=== PATIENT | male | born 1955 | race African-American/Black ===

== ENCOUNTER 2024-02-25 18:33 | Emergency (ER) | payer MEDICARE, MEDICAID, SELFPAY ==
[2024-02-25 18:35] VITALS: BP 160/133; PULSE 95; RESP 16; TEMP 36.8; O2SAT 95; BMI 38.9
--- NOTE | 2024-02-25 18:42 | EX.ED.VIS.EY ---
HPI History of Present Illness Chief Complaint: Eye Problem Detail of Chief Complaint: Swelling and drainage from left eye after blunt trauma Informant: patient Onset/Context/Timing Location: Left Eye Onset: Yesterday Context: Gradual Onset Timing: Continuous Current Severity: Moderate Worsened by: Trauma Relieved by: Nothing Associated Symptoms Associated Symptoms - Eyes: Drainage, Eyelid swelling, Foreign body sensation, Matting, Pain and Redness Visual Changes: left: Blurred vision History of injury: Yes and Direct trauma Visual correction: None Narrative Narrative: Patient is an elderly male who presents because of increased swelling of his left upper eyelid with drainage from the eye. He believes the drainage is due to the fact that he got soup in his eye. He denies headache. He states he is able to see out of the eye once I opened it. Prior similar symptoms: No Recent Illness/Hospitalization: No [facility] Medical History (Updated 02/25/24 @ 19:[address] Aaron Sheridan MD) Acute insomnia Alcohol abuse Alcohol dependence with alcohol-induced persisting dementia Cognitive communication deficit Constipation COPD (chronic obstructive pulmonary disease) Delusional disorders Dementia Disorientation, unspecified Essential hypertension Hallucinations, unspecified Herpesviral vesicular dermatitis Irritable bowel syndrome Muscle weakness (generalized) Overactive bladder Paranoid schizophrenia Peripheral vascular disease Type 2 diabetes mellitus Unspecified abnormalities of gait and mobility Vitamin D deficiency Allergy/AdvReac Type Severity Reaction Status Date / Time lithium Allergy Intermediate PT UNSURE Verified 02/25/24 18:37 OF REACTION ROS ROS ED Constitutional Constitutional ED: Denies chills, fever(s) or subjective Eyes Eyes: Reports change in vision left ENT ENT ED: Denies ear pain, rhinorrhea or sore throat Gastrointestinal Gastrointestinal: Reports nausea and vomiting Musculoskeletal Musculoskeletal: Denies arthralgias or myalgias Neurologic Neurologic: Denies headache(s) EXAM Physical Exam Const Vital Signs: 02/25/24 18:35 Temperature 98.3 F Temperature Source Temporal Pulse Rate 95 Respiratory Rate 16 Blood Pressure 160/133 H Blood Pressure Mean 142 Pulse Ox 95 Oxygen Delivery Method Room Air Positive well nourished, well developed and obese General Appearance ED: well developed and NAD Nutritional Appearance: obese HEENT HEENT Narrative: Patient has obvious swelling of the upper left eyelid. The eye appears proptotic. He complains of pain with movement. He had difficulty looking to the right. There is drainage noted from the eye. trauma Eyes Eyes Narrative: Pupils equal round reactive. Extract muscle intact. There appears to be an obvious corneal abrasion. The sclera is injected. The conjunctive is injected. There is no step-off with palpation infraorbital rim. There is no hyperesthesia of the infraorbital nerve. Patient reports significant pain looking to the right. Unable to determine how far he was able left because he complained of severe pain. Neck no lymphadenopathy, supple and no JVD Resp normal respiratory effort and clear to auscultation bilaterally Cardio regular rate and regular rhythm Neuro oriented x3 and CN's II-XII intact bilaterally Sensorium / Orientation: alert Psych Psych Narrative: Mood and affect are normal Skin no wounds MDM MDM MDM Narrative Medical decision making narrative: With pain with movement and proptosis will obtain CT orbit to assess for retro-orbital hematoma. Nurse was asked to perform visual acuity. Will anesthetize eyes with tetracaine and stained with foreseen and perform slit-lamp exam looking for evidence of corneal laceration,. There is no obvious hyphema noted. Visual acuity 20/70 right eye 20/100 left eye. Patient normally wears glasses. He does not have his glasses with him. Attempt at slit-lamp exam was suboptimal. Patient became angry because I would hold his eyes open. He states that is making his pain worse. He does have a corneal abrasion. Cannot determine the extent. Unable to determine if he has flare or cells however he does not have photophobia to consensual light. Patient states he wants to go back to the nursing facility. Patient does have capacity to refuse care. He is willing to have the laundry tech to perform a CAT scan to determine if there is blood behind his eyes. I was informed by the offshore wind turbine technician to make an the patient we will not allow her to scan him. Prior to his refusal of the slit-lamp exam he was informed of concerns and possible outcomes. He was able to repeat in simple terms that he may lose his vision. He may have increased pain. Will prescribe antibiotic eyedrops. Even though patient may have a mental illness he does have capacity to sign out against medical vice. Will have patient's sign AMA form. Discharge Plan Triage Chief Complaint: Eye Problem ED Provider: Aaron Sheridan Dx/Rx/DC Orders Clinical Impression: Acute conjunctivitis of left eye, Chemosis of left conjunctiva, Periorbital hematoma of left eye, Abrasion of cornea, left Instructions: ED Conjunctivitis, Nonspecific, ED Corneal Abrasion Referrals: Se Capps MD [Med Staff - Active Staff] - 1-2 Days if not improving Activity Restrictions/Additional Instructions: 1. Instill 1 to 2 drops of ciprofloxacin ophthalmic solution every 2-4 hours while awake left eye. I admit informed by Dr. Sheridan that my lack of cooperation and inability to perform a complete examination which includes a slit-lamp examination and CAT scan may result in loss of vision and or eye. This may also result in infection. This may result in more extensive and invasive treatment by not allowing Dr. Sheridan to perform adequate exam and offshore wind turbine technician to perform CAT scan of the orbit. If I develop a severe infection this may result in injury to other organ systems and possibly require life support i.e. intubation, feeding tube, Kohler and other interventions. This is not limited to what is documented. Disposition Disposition: Against Medical Advice
[2024-02-25] MEDS: Tetracaine 0.5% Ophthalmic Bottle 1 DRP LEFT EYE (18:50)
[2024-02-25] MEDS: Fluorescein 1 MG STRIP 1 STRIP LEFT EYE (18:50)
--- NOTE | 2024-02-25 19:26 | EX.ED.VIS.EY ---
HPI History of Present Illness Chief Complaint: Eye Problem [facility] Medical History (Updated 02/25/24 @ 19:[address] Aaron Sheridan MD) Acute insomnia Alcohol abuse Alcohol dependence with alcohol-induced persisting dementia Cognitive communication deficit Constipation COPD (chronic obstructive pulmonary disease) Delusional disorders Dementia Disorientation, unspecified Essential hypertension Hallucinations, unspecified Herpesviral vesicular dermatitis Irritable bowel syndrome Muscle weakness (generalized) Overactive bladder Paranoid schizophrenia Peripheral vascular disease Type 2 diabetes mellitus Unspecified abnormalities of gait and mobility Vitamin D deficiency Allergy/AdvReac Type Severity Reaction Status Date / Time lithium Allergy Intermediate PT UNSURE Verified 02/25/24 18:37 OF REACTION EXAM Physical Exam Const Vital Signs: 02/25/24 18:35 Temperature 98.3 F Temperature Source Temporal Pulse Rate 95 Respiratory Rate 16 Blood Pressure 160/133 H Blood Pressure Mean 142 Pulse Ox 95 Oxygen Delivery Method Room Air Discharge Plan Triage Chief Complaint: Eye Problem ED Provider: Aaron Sheridan Dx/Rx/DC Orders Clinical Impression: Acute conjunctivitis of left eye, Chemosis of left conjunctiva, Periorbital hematoma of left eye, Abrasion of cornea, left Instructions: ED Conjunctivitis, Nonspecific, ED Corneal Abrasion Referrals: Se Capps MD [Med Staff - Active Staff] - 1-2 Days if not improving Activity Restrictions/Additional Instructions: 1. Instill 1 to 2 drops of ciprofloxacin ophthalmic solution every 2-4 hours while awake left eye. I admit informed by Dr. Sheridan that my lack of cooperation and inability to perform a complete examination which includes a slit-lamp examination and CAT scan may result in loss of vision and or eye. This may also result in infection. This may result in more extensive and invasive treatment by not allowing Dr. Sheridan to perform adequate exam and windshield technician to perform CAT scan of the orbit. If I develop a severe infection this may result in injury to other organ systems and possibly require life support i.e. intubation, feeding tube, Kohler and other interventions. This is not limited to what is documented. Disposition Disposition: Against Medical Advice
--- NOTE | 2024-02-25 19:27 | EX.ED.VIS.EY ---
HPI History of Present Illness Chief Complaint: Eye Problem [facility] Medical History (Updated 02/25/24 @ 19:[address] Aaron Sheridan MD) Acute insomnia Alcohol abuse Alcohol dependence with alcohol-induced persisting dementia Cognitive communication deficit Constipation COPD (chronic obstructive pulmonary disease) Delusional disorders Dementia Disorientation, unspecified Essential hypertension Hallucinations, unspecified Herpesviral vesicular dermatitis Irritable bowel syndrome Muscle weakness (generalized) Overactive bladder Paranoid schizophrenia Peripheral vascular disease Type 2 diabetes mellitus Unspecified abnormalities of gait and mobility Vitamin D deficiency Allergy/AdvReac Type Severity Reaction Status Date / Time lithium Allergy Intermediate PT UNSURE Verified 02/25/24 18:37 OF REACTION EXAM Physical Exam Const Vital Signs: 02/25/24 18:35 Temperature 98.3 F Temperature Source Temporal Pulse Rate 95 Respiratory Rate 16 Blood Pressure 160/133 H Blood Pressure Mean 142 Pulse Ox 95 Oxygen Delivery Method Room Air MDM MDM MDM Narrative Medical decision making narrative: When I attempt to add an addendum to the original documentation a new document opens. This was tried 3 separate times. I was informed that there is a POA for the patient. The nurse contacted the facility that patient came from. They gave us 3 numbers and attempt to contact the POA who I was told as an family law attorney. All 3 numbers were called. The nurse said they went to voicemail. Unable to contact the POA. As previously stated patient may have a mental illness but he does have capacity and understands the consequences by not cooperating. He states if we do not get a ride home for him he will walk back to the facility. Discharge Plan Triage Chief Complaint: Eye Problem ED Provider: Aaron Sheridan Dx/Rx/DC Orders Clinical Impression: Acute conjunctivitis of left eye, Chemosis of left conjunctiva, Periorbital hematoma of left eye, Abrasion of cornea, left Instructions: ED Conjunctivitis, Nonspecific, ED Corneal Abrasion Referrals: Se Capps MD [Med Staff - Active Staff] - 1-2 Days if not improving Activity Restrictions/Additional Instructions: 1. Instill 1 to 2 drops of ciprofloxacin ophthalmic solution every 2-4 hours while awake left eye. I admit informed by Dr. Sheridan that my lack of cooperation and inability to perform a complete examination which includes a slit-lamp examination and CAT scan may result in loss of vision and or eye. This may also result in infection. This may result in more extensive and invasive treatment by not allowing Dr. Sheridan to perform adequate exam and manufacturing technology analyst to perform CAT scan of the orbit. If I develop a severe infection this may result in injury to other organ systems and possibly require life support i.e. intubation, feeding tube, Kohler and other interventions. This is not limited to what is documented. Disposition Disposition: Against Medical Advice
--- NOTE | 2024-02-25 19:27 | ED.RN ---
This RN attempted to call 3 phone numbers for the legal guardian and did not get an answer from them. This RN called [facility] and they also could not get a hold of the legal guardian. The patient is saying I do not want to be touched, take me to correction instead of being here and is rambling on. The patient is being discharged home without a CT due to him becoming agitated and refusing numerous times. This RN called report back to [facility] and they are aware of the plan of care.
--- NOTE | 2024-02-25 19:36 | ED.RN ---
Pt is refusing eye drops and stating it hurts to touch, dont touch me! Id rather go to skilled nursing than be here.
--- NOTE | 2024-02-25 19:37 | ED.RN ---
MD aware of problems with patient and he has explained the risks of refusing treatment.
== END 2024-02-25 21:01 | disposition left against medical advice (07) ==
PROVIDERS: Emergency Provider Emergency Medicine; PCP Family Medicine; Visit Provider Emergency Medicine
DX: S05.12XA Contusion of eyeball and orbital tissues, left eye, initial encounter (principal); J44.9 Chronic obstructive pulmonary disease, unspecified; E11.9 Type 2 diabetes mellitus without complications; H10.32 Unspecified acute conjunctivitis, left eye; H11.422 Conjunctival edema, left eye; S05.02XA Injury of conjunctiva and corneal abrasion without foreign body, left eye, initial encounter; I10 Essential (primary) hypertension; W44.F3XA Food entering into or through a natural orifice, initial encounter; Y92.129 Unspecified place in nursing home as the place of occurrence of the external cause
CPT/HCPCS: 99284

== ENCOUNTER 2025-03-03 18:47 | Inpatient (IN) | payer MEDICARE, MEDICAID, SELFPAY ==
[2025-03-03] VITALS (10 sets, daily range): BP systolic 116–145; BP diastolic 63–94; PULSE 81–96; RESP 18–22; TEMP 36.4–37.1; O2SAT 86–100; BMI 49.6; BMI 43.7
--- NOTE | 2025-03-03 19:13 | EKG12_ITS ---
Test Reason : SOB Blood Pressure : */* mmHG Vent. Rate : 90 BPM Atrial Rate : 90 BPM P-R Int : 178 ms QRS Dur : 126 ms QT Int : 352 ms P-R-T Axes : 52 -43 89 degrees QTcB Int : 430 ms Normal sinus rhythm with sinus arrhythmia Left axis deviation Non-specific intra-ventricular conduction block Abnormal ECG Confirmed by Gil Munoz ([id number]), television news video editor SAHIL ROSEN ([id number]) on 03/08/2025 1:06:16 PM Referred By: SISSY Confirmed By: Gil Munoz
--- NOTE | 2025-03-03 19:16 | ED.VIS.DYS ---
HPI History of Present Illness Chief Complaint: Shortness of Breath Informant: patient, EMS and SNF Narrative Narrative: 69-year-old male presenting to the emergency room with reported shortness of breath. Patient is from nursing home facility. He was deemed incompetent by Environmental Sustainability Manager. He has a longstanding psychiatric history. He was noted to be increased shortness of breath with hypoxia this afternoon. He had been started on Lasix 20 mg today. They also gave him a breathing treatment. He does not typically wear oxygen. He was reported to not have known cardiac history. I do not see that he is on a anticoagulant. He does receive valproic acid. EMS and nursing notes that he is in the mid 80s on room air. [facility] Medical History Dementia Cognitive communication deficit Disorientation, unspecified Delusional disorders Irritable bowel syndrome Peripheral vascular disease Hallucinations, unspecified Alcohol dependence with alcohol-induced persisting dementia Muscle weakness (generalized) Essential hypertension Constipation Herpesviral vesicular dermatitis Paranoid schizophrenia Unspecified abnormalities of gait and mobility Type 2 diabetes mellitus Alcohol abuse Overactive bladder Vitamin D deficiency Dementia Acute insomnia COPD (chronic obstructive pulmonary disease) Home Medications ?Medication ?Instructions ?Recorded ?Last Taken ?Type aspirin 81 mg capsule 81 mg PO DAILY 03/03/25 Unknown History cholecalciferol (vitamin D3) 125 125 mcg PO MO 03/03/25 Unknown History mcg (5,000 unit) capsule cholecalciferol (vitamin D3) 25 25 mcg PO DAILY 03/03/25 Unknown History mcg (1,000 unit) chewable tablet divalproex 125 mg capsule,delayed 500 mg PO DAILY 03/03/25 Unknown History release sprinkle divalproex 125 mg capsule,delayed 750 mg PO QHS 03/03/25 Unknown History release sprinkle (Depakote Sprinkles) ipratropium 0.5 mg-albuterol 3 mg 3 ml inhalation Q8H 03/03/25 Unknown History (2.5 mg base)/3 mL nebulization soln lisinopril 20 mg tablet 20 mg PO DAILY 03/03/25 Unknown History lorazepam 1 mg tablet 1 mg PO Q6H PRN agitation 03/03/25 Unknown History metformin 500 mg tablet 500 mg PO BID 03/03/25 Unknown History multivitamin (Daily Multi-Vitamin 1 tab PO DAILY 03/03/25 Unknown History tablet) olanzapine 10 mg tablet (Zyprexa) 10 mg PO DAILY 03/03/25 Unknown History paliperidone palmitate 234 mg/1.5 234 mg IM Q28D 03/03/25 Unknown History mL intramuscular syringe (Erzofri) prednisone 20 mg tablet 40 mg PO DAILY 03/03/25 Unknown History tamsulosin 0.4 mg capsule 0.4 mg PO Q24H 03/03/25 Unknown History Allergy/AdvReac Type Severity Reaction Status Date / Time lithium Allergy Intermediate PT UNSURE Verified 03/03/25 18:48 OF REACTION Social History household members: none housing: custodial Smoking Status: Current every day smoker tobacco type: cigarettes alcohol intake: former substance use type: does not use ROS ROS ED Review of Systems ROS Unobtainable: due to mental status EXAM Physical Exam Narrative Exam Narrative: Patient is awake he is alert responds to his name. When he speaks its mostly gibberish and incomprehensible sounds. Const Vital Signs: 03/03/25 18:48 03/03/25 18:53 03/03/25 18:53 Temperature 98.7 F 97.8 F Temperature Source Oral Oral Pulse Rate 92 86 Respiratory Rate 18 18 Respiratory Effort Short of Breath Respiratory Depth Normal Respiratory Pattern Normal Blood Pressure 140/77 H 140/77 H Blood Pressure Mean 98 98 Pulse Ox 86 97 Oxygen Delivery Method Room Air Nasal Cannula Nasal Cannula Oxygen Flow Rate (L/min) 2 2 03/03/25 19:47 03/03/25 19:53 03/03/25 20:00 Temperature 97.6 F L 97.7 F L Temperature Source Oral Oral Pulse Rate 88 89 88 Respiratory Rate 21 H 21 H 22 H Respiratory Effort Respiratory Depth Respiratory Pattern Blood Pressure 130/90 H 130/87 H 145/83 H Blood Pressure Mean 103 101 103 Pulse Ox 96 94 96 Oxygen Delivery Method Nasal Cannula Nasal Cannula Nasal Cannula Oxygen Flow Rate (L/min) 1 1 1 03/03/25 21:00 03/03/25 22:00 03/03/25 22:00 Temperature 98 F 98.1 F Temperature Source Oral Temporal Pulse Rate 95 90 90 Respiratory Rate 18 19 H 19 H Respiratory Effort Respiratory Depth Respiratory Pattern Blood Pressure 137/94 H 133/71 H 133/71 H Blood Pressure Mean 108 91 91 Pulse Ox 96 92 92 Oxygen Delivery Method Nasal Cannula Nasal Cannula Nasal Cannula Oxygen Flow Rate (L/min) 2 2 2 03/03/25 22:11 Temperature Temperature Source Pulse Rate 96 Respiratory Rate 20 H Respiratory Effort Respiratory Depth Respiratory Pattern Normal Blood Pressure Blood Pressure Mean Pulse Ox Oxygen Delivery Method Oxygen Flow Rate (L/min) Positive well nourished, well developed and obese General Appearance ED: well developed and NAD Nutritional Appearance: obese HEENT Reports normocephalic, head/scalp atraumatic and moist mucous membranes Eyes PERRL and EOMs intact bilaterally Neck no lymphadenopathy, supple and no JVD Resp Resp Narrative: Mild tachypnea at rest Auscultation: rhonchi throughout Cardio regular rate, regular rhythm and no murmurs GI normal to inspection, nondistended, normoactive bowel sounds and non-tender Palpation: soft Back/Spine no CVA tenderness and normal ROM Extremity General Extremety ED: Yes edema General Extremity: edema bilateral lower extremity Details: moderate Neuro CN's II-XII intact bilaterally Sensorium / Orientation: alert Motor Exam: strength 5/5 throughout Psych Mood & Affect: Negative for depressed or tearful Skin no rashes or lesions noted and no wounds MDM MDM MDM Narrative Medical decision making narrative: Differential diagnosis includes but not limited to pulmonary embolism pneumonia COPD exacerbation congestive heart failure pleural effusion bronchospasm acute coronary syndrome My independent interpretation of the chest x-ray is possible pulmonary edema no distinct pleural effusion. EKG is nonischemic is sinus. White count 7.3 hemoglobin 10.6 platelet count 182 lactic acid is 1.6 glucose 129 creatinine 0.62 troponin 9 BNP is 882 urinalysis with no overt infection. Valproic acid level was obtained and is 75. A CTA of the chest was obtained which was read by radiology and reviewed by myself. It is read as no pulmonary embolism noted. There is bibasilar atelectasis and a trace pericardial effusion. I do not see infiltrate. Patient's legs are diffusely edematous and tight. He received Lasix. He has rather rhonchorous lung sounds and he received breathing treatments and Solu-Medrol. I do not see overt pulmonary edema on CTA and his BNP does not support that. He still required supplemental oxygen and believe would be best served inpatient for diuresis and further management of his COPD. I will speak with the hospitalist History & Record Review Discussion w/independent historian: EMS personnel and Other (SNF) Additional record(s) reviewed:: Prior outpatient record, Prior ED visit and Prior labs Lab Data Attestation: I reviewed the patient's lab results. Labs: Laboratory Results - last 24 hr 03/03/25 03/03/25 19:17 20:34 WBC 7.3 RBC 4.06 L Hgb 10.6 L Hct 33.6 L MCV 82.8 MCH 26.1 L MCHC 31.5 L RDW Std Deviation 47.0 H RDW Coeff of Jann 15.4 H Plt Count 182 MPV 8.2 Immature Gran % (Auto) 0.700 Neut % (Auto) 82.4 H Lymph % (Auto) 10.6 L [place] % (Auto) 6.2 Eos % (Auto) 0.0 Baso % (Auto) 0.1 Absolute Neuts (auto) 6.0 Absolute Lymphs (auto) 0.77 L Nucleated RBC % 0 PT 13.8 INR 1.0 APTT 33.6 Sodium 123 L Potassium 5.1 Chloride 85 L Carbon Dioxide 30.2 Anion Gap 8 BUN 5 Creatinine 0.62 L Estim Creat Clear Calc 125.30 Est GFR (MDRD) Non-Af 104 BUN/Creatinine Ratio 7.7 L Glucose 129 H Lactic Acid 1.6 Calcium 8.8 Total Bilirubin 0.26 Direct Bilirubin 0.13 AST 14 ALT 5 Alkaline Phosphatase 70 Troponin T High Sens 9 NT pro BNP II 882 Total Protein 7.9 Albumin 3.6 Globulin 4.3 H Urine Color Straw Urine Clarity Clear Urine pH 7.0 Ur Specific [place] 1.005 Urine Protein Negative Urine Glucose (UA) Normal Urine Ketones Negative Urine Occult Blood 10 H Urine Nitrite Negative Urine Bilirubin Negative Urine Urobilinogen Normal Ur Leukocyte Esterase Negative Urine RBC 0 SEEN Urine WBC 0 SEEN Ur Squamous Epith Cells 0 SEEN Urine Bacteria RARE Urine Mucus 0 SEEN Valproic Acid 75 Radiography Diagnostic Testing: Clinical Impression(s) from Imaging Studies Chest X-Ray 03/03/25 19:27 IMPRESSION: Findings compatible with interstitial edema. Reading Location: [facility] Chest CTA 03/03/25 20:45 IMPRESSION: *No evidence of pulmonary edema or acute findings in the thorax. *Bibasilar atelectasis. *Trace pericardial effusion. Reading [facility] EKG Initial EKG: Attestation: I personally reviewed and interpreted this EKG as follows: Comments: Normal sinus rhythm with ventricular rate of 90 bpm. Discharge Plan Dx/Rx/DC Orders Clinical Impression: Asthma exacerbation in COPD, Volume overload, Acute hypoxemic respiratory failure Disposition Disposition: Acute Care Hospital [facility] Discharge Date/Time: 03/03/25 22:37
--- NOTE | 2025-03-03 19:27 | RAD_ITS ---
PROCEDURE: CHEST 1 VIEW (PORTABLE) 03/03/2025 REASON FOR EXAM: DYSPNEA TECHNIQUE: Frontal view of the chest. COMPARISON: None FINDINGS: Hardware: None Heart: Heart size is moderately enlarged. Lungs: Diffuse bilateral interstitial thickening. Small bilateral pleural effusions and bibasilar atelectasis. No pneumothorax. No focal consolidation. Bones: Degenerative changes are identified within the thoracic spine. Other: RAD/Chest 1 View (Portable) IMPRESSION: Findings compatible with interstitial edema. Reading Location: [facility]
[2025-03-03 19:28] LABS: Absolute Lymphocyte Count 0.77 X10^3/uL (0.83-4.51); Basophil# 0.01 X10^3/uL; Basophil% 0.1 % (0-1); Hematocrit 33.6 % (40-54); Hemoglobin 10.6 g/dL (13.0-16.5); Lymphocyte # 0.77 X10^3/ul (0.83-4.51); Lymphocyte % 10.6 % (19-41); Mean Corp Hgb Conc 31.5 g/dL (32-36); Mean Corpuscular Hgb 26.1 pg (27.0-32.0); Mean Corpuscular Volume 82.8 fL (80-94); Mean Platelet Vol. 8.2 fl (6.2-12.0); Monocyte# 0.45 X10^3/uL; Monocyte% 6.2 % (0-10); NRBC Flagged by Analyzer 0 % (0-5); Neutrophil # 5.98 X10^3/uL (2.7-7.7); Neutrophil % 82.4 % (47-70); Platelet Count 182 K/mm3 (150-450); RBC Distribution Width CV 15.4 % (11.6-14.6); Red Blood Count 4.06 M/mm3 (4.6-6.2); White Blood Count 7.3 K/mm3 (4.4-11.0)
[2025-03-03 19:57] LABS: Lactic Acid 1.6 mmol/L (0.0-2.0)
[2025-03-03 20:00] LABS: AST(SGOT) 14 U/L (<=37); Alanine Aminotransfer ALT/SGPT 5 U/L (<=46); Albumin, Serum 3.6 g/dL (3.4-4.8); Alkaline Phosphatase 70 U/L (40-129); Anion Gap 8 (5-15); BUN 5 mg/dL (4-19); BUN/Creat Ratio 7.7 RATIO (10-20); Bilirubin, Direct 0.13 mg/dL (0.00-0.30); Calcium,Total 8.8 mg/dL (7.6-11.0); Carbon Dioxide 30.2 mmol/L (21.0-32.0); Chloride 85 mmol/L (98-108); Creatinine, Serum 0.62 mg/dL (0.70-1.20); EST Glomerular Filtration Rate 104 (>60); Globulin 4.3 g/dL (2.2-4.2); Glucose 129 mg/dL (70-99); Potassium 5.1 mmol/L (3.3-5.1); Pro- Brain NATRIURETIC PEPTIDE 882 pg/mL (<=900); Protein, Total 7.9 g/dL (5.9-8.4); Sodium Level 123 mmol/L (133-145); Total Bilirubin 0.26 mg/dL (0.00-1.30); Troponin T High Sensitivity 9 ng/L (<=22)
[2025-03-03 20:17] LABS: Valproic Acid (Depakene) Level 75 ug/mL (50-100)
[2025-03-03 20:25] LABS: Partial Thromboplast Time 33.6 Seconds (24.1-36.2); Prothrombin Time (Protime)PT. 13.8 SECONDS (11.7-14.9)
[2025-03-03 20:39] LABS: Mucous, Urine 0 SEEN /hpf (<or=2+); Red Blood Cells-Urine 0 SEEN /hpf (0-5); Squamous Epithelial Cells - UA 0 SEEN /hpf (0-5); White Blood Cells 0 SEEN /hpf (0-5)
[2025-03-03 20:40] LABS: Color, Urine Straw (Yellow); Glucose, Dipstick Normal (Normal); Ketone-Dipstick Negative (Negative); Leukocyte Esterase-Dipstick Negative /ul (Negative); Nitrite-Dipstick Negative (Negative); Occult Blood-Urine 10 /ul (Negative); Protein-Dipstick Negative (Negative); Specific Gravity, Urine 1.005 (1.002-1.030); Urine Bilirubin Dipstick Negative (Negative); Urine Clarity Clear (Clear); Urine Urobilinogen Normal (Normal)
--- NOTE | 2025-03-03 20:45 | CT_ITS ---
PROCEDURE: CTA CHEST W/WO CONTRAST 03/03/2025 REASON FOR EXAM: PULMONARY EMBOLISM TECHNIQUE: CTA axial imaging of the chest with intravenous contrast. Multiplanar and multisequence images were obtained. PATIENT PREPARATION: Per protocol CONTRAST: Omnipaque 350 VOLUME: 100 mL Not Provided Gauge IV One or more dose reduction techniques were used (e.g., Automated exposure control, adjustment of the mA and/or kV according to patient size, use of iterative reconstruction technique). COMPARISON: None FINDINGS: Hardware: None Lymph nodes: No suspicious adenopathy. Heart: No cardiomegaly. Trace pericardial effusion. Moderate coronary artery calcifications. Thoracic Aorta: No thoracic aortic aneurysm or dissection. Minimal atherosclerotic calcification. Pulmonary Vessels: No large central pulmonary emboli are identified. Contrast timing is suboptimal for evaluation of more distal branches. Most Proximal Level of Embolus (if embolus present): Lungs and Airways: Central airways are patent without endobronchial lesions. Patchy opacities in the lung base, likely secondary to atelectasis. Otherwise, no focal consolidation. No pneumothorax. No pleural effusion. No suspicious pulmonary nodules. Upper Abdomen: Visualized portions of the upper abdominal viscera are unremarkable. Bones: Bone windows are unremarkable. CT/CTA Chest W/WO Contrast IMPRESSION: *No evidence of pulmonary edema or acute findings in the thorax. *Bibasilar atelectasis. *Trace pericardial effusion. Reading Location: [facility]
[2025-03-03 20:47] LABS: Bacteria RARE /hpf (None Seen)
[2025-03-03] MEDS: MethylPREDNISolone 125 MG/2 ML Vial IV (22:11)
[2025-03-03] MEDS: Ipratropium/Albuterol Sulfate 3 ML AMPUL.NEB INHALATION (22:11)
[2025-03-03] MEDS: Furosemide 100 MG/10 ML Vial 60 MG IV (22:11)
--- NOTE | 2025-03-03 22:14 | PCM.HP.STD ---
HPI - General General Date of Admission: 03/03/25 Date of Service: 03/03/25 Chief Complaint: Dyspnea, hypoxia. HPI Narrative The patient is a 69 y/o M w/ PMHx: Hx ETOH abuse, Suspected chronic anemia, BPH with obstructive pathology, Morbid obesity, Dementia alcohol dependence persistent associated with unclear behavioral disturbance history with cognitive communication deficits, paranoid schizophrenia/chronic insomnia, Tobacco use, COPD on chronic steroid therapy, Tobacco use, HTN, HLD, Diabetes mellitus type II who presents to the [facility] ED on 03/03/2025 from [facility] where he was placed secondary to an incompetent ruling per [employer] with a longstanding psychiatric history with increased dyspnea and hypoxia through the afternoon recently initiated on Lasix 20 mg on day of presentation in addition to use breathing treatments but given not improving prompted ED evaluation. Workup in the ED included T98.7, heart rate 92, BP 140/77, respiratory rate 18, initially 86% on room air with improvement to 96% on 2 L with most recent repeat vitals T98, heart rate 95, BP 137/94, respiratory rate 18, CBC with WBC 7.3, he 1 10.6, MCV 82.8, platelet 182 with lymphopenia, unremarkable coags, CMP with sodium 123, chloride 85, BUN/creatinine 5/0.62, GFR 104, glucose 129, lactic acid 1.6, troponin 9, NT proBNP 882, hepatic profile not marked appearing, urinalysis unremarkable with no evidence of dehydration, chest x-ray with diffuse bilateral interstitial thickening with small bilateral pleural effusions and bilateral basilar atelectasis compatible with potential interstitial edema, CTPA with no acute evidence of PE or marked pulmponary edema, noted bibasilar ateletasis, trace pericardial effusion, EKG with SR without acute evidence of ischemia. In the ED patient ministered albuterol therapy x 2, DuoNeb therapy x 1, Solu-Medrol 125 mg IV x 1, Lasix 60 mg IV x 1. [facility] Medical History Dementia Cognitive communication deficit Disorientation, unspecified Delusional disorders Irritable bowel syndrome Peripheral vascular disease Hallucinations, unspecified Alcohol dependence with alcohol-induced persisting dementia Muscle weakness (generalized) Essential hypertension Constipation Herpesviral vesicular dermatitis Paranoid schizophrenia Unspecified abnormalities of gait and mobility Type 2 diabetes mellitus Alcohol abuse Overactive bladder Vitamin D deficiency Dementia Acute insomnia COPD (chronic obstructive pulmonary disease) Home Medications ?Medication ?Instructions ?Recorded ?Last Taken ?Type aspirin 81 mg capsule 81 mg PO DAILY 03/03/25 Unknown History cholecalciferol (vitamin D3) 125 125 mcg PO MO 03/03/25 Unknown History mcg (5,000 unit) capsule cholecalciferol (vitamin D3) 25 25 mcg PO DAILY 03/03/25 Unknown History mcg (1,000 unit) chewable tablet divalproex 125 mg capsule,delayed 500 mg PO DAILY 03/03/25 Unknown History release sprinkle divalproex 125 mg capsule,delayed 750 mg PO QHS 03/03/25 Unknown History release sprinkle (Depakote Sprinkles) ipratropium 0.5 mg-albuterol 3 mg 3 ml inhalation Q8H 03/03/25 Unknown History (2.5 mg base)/3 mL nebulization soln lisinopril 20 mg tablet 20 mg PO DAILY 03/03/25 Unknown History lorazepam 1 mg tablet 1 mg PO Q6H PRN agitation 03/03/25 Unknown History metformin 500 mg tablet 500 mg PO BID 03/03/25 Unknown History multivitamin (Daily Multi-Vitamin 1 tab PO DAILY 03/03/25 Unknown History tablet) olanzapine 10 mg tablet (Zyprexa) 10 mg PO DAILY 03/03/25 Unknown History paliperidone palmitate 234 mg/1.5 234 mg IM Q28D 03/03/25 Unknown History mL intramuscular syringe (Erzofri) prednisone 20 mg tablet 40 mg PO DAILY 03/03/25 Unknown History tamsulosin 0.4 mg capsule 0.4 mg PO Q24H 03/03/25 Unknown History Allergy/AdvReac Type Severity Reaction Status Date / Time lithium Allergy Intermediate PT UNSURE Verified 03/03/25 18:48 OF REACTION unable to obtain unable to obtain Social History household members: none housing: alf Smoking Status: Current every day smoker tobacco type: cigarettes alcohol intake: former substance use type: does not use ROS Review of Systems ROS Unobtainable: due to mental condition Vital Signs Vital Signs Vital Signs: 03/03/25 18:48 03/03/25 18:53 03/03/25 18:53 Temperature 98.7 F 97.8 F Temperature Source Oral Oral Pulse Rate 92 86 Respiratory Rate 18 18 Respiratory Effort Short of Breath Respiratory Depth Normal Respiratory Pattern Normal Blood Pressure 140/77 H 140/77 H Blood Pressure Mean 98 98 Pulse Ox 86 97 Oxygen Delivery Method Room Air Nasal Cannula Nasal Cannula Oxygen Flow Rate (L/min) 2 2 03/03/25 19:47 03/03/25 19:53 03/03/25 20:00 Temperature 97.6 F L 97.7 F L Temperature Source Oral Oral Pulse Rate 88 89 88 Respiratory Rate 21 H 21 H 22 H Respiratory Effort Respiratory Depth Respiratory Pattern Blood Pressure 130/90 H 130/87 H 145/83 H Blood Pressure Mean 103 101 103 Pulse Ox 96 94 96 Oxygen Delivery Method Nasal Cannula Nasal Cannula Nasal Cannula Oxygen Flow Rate (L/min) 1 1 1 03/03/25 21:00 Temperature 98 F Temperature Source Oral Pulse Rate 95 Respiratory Rate 18 Respiratory Effort Respiratory Depth Respiratory Pattern Blood Pressure 137/94 H Blood Pressure Mean 108 Pulse Ox 96 Oxygen Delivery Method Nasal Cannula Oxygen Flow Rate (L/min) 2 Weight Weight: 326 lb 4.546 oz Body Mass Index (BMI) 49.6 Physical Exam Narrative Physical Examination: General: Patient will awaken to stimuli and will attempt discussions but significant chronic communicative debility with underlying severe psychiatric disorder/schizophrenia, no overt respiratory distress evident. Skin: Normal color, normal turgor, no icterus, no cyanosis except various abrasions, cysts, occasional stage ecchymoses as well as significant bilateral lower extremity venous stasis skin changes. HEENT: AT/NC, EOM appear intact, PERRLA, MMM, no carotid bruits, difficult to discern JVD given thickened neck. Lungs: Notably diminished, greater bases, occasional end expiratory wheeze, distant rales, no obvious evidence of distress, mildly increased respiratory rate, no marked rhonchi. Heart: Regular rate and rhythm; no gallop, rub audible. Abdomen: Soft, morbidly obese, no obvious grimacing with palpation, distant BS, difficult to discern distention and HSM given habitus. Extremities: No cyanosis, no clubbing, pedal to proximal knee significant 3+ pitting edema. Neurological: Patient awakens to stimuli, likely alert at his baseline but difficult given significant underlying communicative debility and underlying psychiatric disorder on sedated regimen, oriented as noted, cognitive function suspect likely near baseline intact; pupils equally reactive to light and accommodation, cranial nerves difficult to assess given communicative disabilities, spontaneously moving extremities, difficult to assess focal deficits, strength severely global decreased Psychiatric: Affect appears flat, sedate, no acute evidence of depressive or anxiety feelings but does have significant psychiatric history as noted. Results Lab / Micro Data 03/03/25 19:17 03/03/25 19:17 Labs: Laboratory Results - last 24 hr 03/03/25 19:17: WBC 7.3, RBC 4.06 L, Hgb 10.6 L, Hct 33.6 L, MCV 82.8, MCH 26.1 L, MCHC 31.5 L, RDW Std Deviation 47.0 H, RDW Coeff of Jann 15.4 H, Plt Count 182, MPV 8.2, Immature Gran % (Auto) 0.700, Neut % (Auto) 82.4 H, Lymph % (Auto) 10.6 L, [place] % (Auto) 6.2, Eos % (Auto) 0.0, Baso % (Auto) 0.1, Absolute Neuts (auto) 6.0, Absolute Lymphs (auto) 0.77 L, Nucleated RBC % 0, PT 13.8, INR 1.0, APTT 33.6, Sodium 123 L, Potassium 5.1, Chloride 85 L, Carbon Dioxide 30.2, Anion Gap 8, BUN 5, Creatinine 0.62 L, Estim Creat Clear Calc 125.30, Est GFR (MDRD) Non-Af 104, BUN/Creatinine Ratio 7.7 L, Glucose 129 H, Lactic Acid 1.6, Calcium 8.8, Total Bilirubin 0.26, Direct Bilirubin 0.13, AST 14, ALT 5, Alkaline Phosphatase 70, Troponin T High Sens 9, NT pro BNP II 882, Total Protein 7.9, Albumin 3.6, Globulin 4.3 H, Valproic Acid 75 03/03/25 20:34: Urine Color Straw, Urine Clarity Clear, Urine pH 7.0, Ur Specific [place] 1.005, Urine Protein Negative, Urine Glucose (UA) Normal, Urine Ketones Negative, Urine Occult Blood 10 H, Urine Nitrite Negative, Urine Bilirubin Negative, Urine Urobilinogen Normal, Ur Leukocyte Esterase Negative, Urine RBC 0 SEEN, Urine WBC 0 SEEN, Ur Squamous Epith Cells 0 SEEN, Urine Bacteria RARE, Urine Mucus 0 SEEN Imaging Radiology Impression Chest X-Ray 03/03/25 19:27 IMPRESSION: Findings compatible with interstitial edema. Reading [facility] Chest CTA 03/03/25 20:45 IMPRESSION: *No evidence of pulmonary edema or acute findings in the thorax. *Bibasilar atelectasis. *Trace pericardial effusion. Reading Location: [facility] Assessment & Plan Assessment/Plan (1) Asthma exacerbation in COPD: (2) Hypoxia: PLAN: Plan The patient is a 69 y/o M w/ PMHx: Hx ETOH abuse, Suspected chronic anemia, BPH with obstructive pathology, Morbid obesity, Dementia alcohol dependence persistent associated with unclear behavioral disturbance history with cognitive communication deficits, paranoid schizophrenia/chronic insomnia, Tobacco use, COPD on chronic steroid therapy, Tobacco use, HTN, HLD, Diabetes mellitus type II who presents to the [facility] ED on 03/03/2025 from [facility] facility where he was placed secondary to an incompetent ruling per [employer] with a longstanding psychiatric history with increased dyspnea and hypoxia through the afternoon recently initiated on Lasix 20 mg on day of presentation in addition to use breathing treatments but given not improving prompted ED evaluation. #1. Acute Hypoxia (no respiratory distress, thus presentation more consistent with hypoxia, ruled out respiratory failure), multifactorial, secondary to Suspected Acutely Decompensated HF unclear subtype (despite CTPA findings) in addition to suspected Acute on Chronic COPD Exacerbation: CXR obtained in the ED w/ concern for interstitial edema,CTPA with no acute evidence of PE or marked pulmponary edema, noted bibasilar ateletasis, trace pericardial effusion. Patient administered IV lasix in the ED, will admit to PCU, maintain on cardiac telemetry, obtain cardiac enzyme series, obtain serial EKGs, continue IV lasix diuresis, monitor I/Os, maintain on intake restriction, continue medical therapy, obtain TSH and magnesium level. Echocardiogram requested. Will maintain on oxygen with wean as tolerated to room air, continue ATC duonebs, PRN albuterol, IV methylprednisolone, HOB, IS parameters, will obtain sputum Cx, respiratory viral panel, procalcitonin, will hold on immediately abx therapy but low threshold to add if appropriate. PT/OT/case management consult for discharge planning. #2. Suspected Acute on Possible Chronic Hyponatremia, hypochloremia, suspect hypervolemic presentation given #1: Will continue treatment as noted above, continue IV diuresis, fluid restriction, magnesium, UOsm and TSH requested, will also obtain FeNa, continue to trend CMP. #3. Suspected Chronic normocytic anemia: Admission hemoglobin 10.6, MCV 82.8, unclear previous baseline, early in the day hemoglobin assessment 10.6, will continue to trend, will obtain iron panel, ferritin, vitamin B12 and folic acid levels. #4. Paranoid schizophrenia/chronic insomnia: Will continue patient home Depakote, lorazepam as needed as well as Zyprexa regimen, noted to also be on paliperidone injection. #5. Dementia, alcohol dependence persistent associated with unclear behavioral disturbance history with cognitive communication deficits: Unfortunately uncertain if part of this is secondary to his schizophrenia or just underlying dementia, complicates presentation, maintain on fall precautions, continue PT/OT/case management consultation for discharge planning, continue psychiatric regimen as noted. #6. Diabetes mellitus type II: Hold oral home regimen, hemoglobin A1c requested, ADA diet, accu checks w/ ISS. #7. Hypertension: Continue home regimen including lisinopril with hold parameters as needed, PRN hydralazine. #8. Hyperlipidemia: Per current list does not appear to be on regimen, defer to outpatient. #9. Morbid Obesity: Weight loss and lifestyle changes encouraged. #10. Former alcohol abuse: Encouraged continued alcohol cessation, currently residing in [facility] facility. #11. Tobacco Abuse: Encouraged cessation, inpatient consultation per RT, NR if desired. #12. BPH with obstructive pathology: Will continue patient on Flomax regimen, monitor for urinary retention. #13. DVT prophylaxis: Lovenox. #14. CODE status: Full Code per facility paperwork[place] Charges/Coding Visit Charges Inpatient E&M: 19877 Init Hosp L3
--- NOTE | 2025-03-03 22:45 | NURSING ---
JESSICA Avilez called from [facility] for update on patient status. Notified that pt is being admitted to PCU for hypoxia, decompensated heart failure, and COPD exacerbation. States her number is [phone].
[2025-03-03 23:12] LABS: Troponin T High Sens 2 HR 10 ng/L (<=22)
[2025-03-03 23:41] LABS: Magnesium 2.1 mg/dL (1.5-2.2); Procalcitonin 0.05 ng/mL (<=0.10)
[2025-03-03 23:57] LABS: Troponin T High Sens 4 HR 10 ng/L (<=22)
[2025-03-03 23:58] LABS: Phosphorus 4.5 mg/dL (2.7-4.5)
[2025-03-04] VITALS (8 sets, daily range): BP systolic 103–132; BP diastolic 59–96; PULSE 74–94; RESP 17–20; TEMP 36.2–36.9; O2SAT 80–100; BMI 43.9
[2025-03-04] MEDS: Acetaminophen 325 MG Tablet 650 MG PO (05:34)
[2025-03-04 05:48] LABS: Bedside Glucose 137 mg/dL (74-106)
--- NOTE | 2025-03-04 05:55 | ECHOD_ITS ---
Reason For Study Reason For Study: CHF Procedure This was a 2D Doppler, Color Flow transthoracic echocardiogram. Technically difficult study due to uncooperative patient. Study ended early per patient request. Exam performed portable in patient room. Left Ventricle Normal LV size. The left ventricular ejection fraction is 40 %. Right Ventricle The right ventricle is not well visualized. Atria The left atrium is not well visualized. The right atrium is not well visualized. Mitral Valve Trivial mitral valve insufficiency. Tricuspid Valve The tricuspid valve is not well visualized. Aortic Valve The aortic valve is not well visualized. Pulmonic Valve The pulmonic valve is not well visualized. Great Vessels The aortic root is not well visualized. Pericardium/Pleural No pericardial effusion. MMode/2D Measurements & Calculations LAV(MOD-sp4): 56.6 ml LA A4 area: 18.6 cm2 Doppler Measurements & Calculations PA V2 max: 82.6 cm/sec PA V2 mean: 47.3 cm/sec ECHO/Echo Complete Interpretation Summary Technically difficult study. Limited study with suboptimal views. Estimated LVEF 40 to 45%. Suspect inferior hypokinesis. Ordering Physician: Fidelina Uriostegui Referring Physician: CHRISTAL CHUNG Performed By: Glenna Lujan RCS
[2025-03-04] MEDS: Ipratropium/Albuterol Sulfate 3 ML AMPUL.NEB INHALATION ×4 (07:32→19:29)
--- NOTE | 2025-03-04 08:30 | PCM.PN.HOSP ---
Reason for Visit Reason for Visit: Diagnoses Chronic obstructive pulmonary disease with (acute) exacerbation (03/03/25) Hypoxemia (03/03/25) Objective Data Objective Data Vital Signs: Vital Signs Temp Pulse Resp BP Pulse Ox O2 Del Method O2 Flow Rate 97.2 F L 74 18 132/68 H 94 Nasal Cannula 2 03/04/25 05:00 03/04/25 05:00 03/04/25 05:00 03/04/25 05:00 03/04/25 05:00 03/04/25 05:00 03/04/25 05:00 Oxygen Flow Rate (L/min) 2 Oxygen Delivery Method Nasal Cannula Weight: 314 lb 13.121 oz Body Mass Index (BMI) 43.9 Intake & Output: Intake and Output for Last 24 Hours 03/02/25 03/03/25 03/04/25 23:59 23:59 23:59 Intake Total 240 / 240 Output Total 1400 / 1400 Balance -1160 / -1160 Lab / Micro Data 03/03/25 19:17 03/03/25 19:17 Labs: Laboratory Results - last 24 hr 03/03/25 19:17: WBC 7.3, RBC 4.06 L, Hgb 10.6 L, Hct 33.6 L, MCV 82.8, MCH 26.1 L, MCHC 31.5 L, RDW Std Deviation 47.0 H, RDW Coeff of Jann 15.4 H, Plt Count 182, MPV 8.2, Immature Gran % (Auto) 0.700, Neut % (Auto) 82.4 H, Lymph % (Auto) 10.6 L, Clinch % (Auto) 6.2, Eos % (Auto) 0.0, Baso % (Auto) 0.1, Absolute Neuts (auto) 6.0, Absolute Lymphs (auto) 0.77 L, Nucleated RBC % 0, PT 13.8, INR 1.0, APTT 33.6, Sodium 123 L, Potassium 5.1, Chloride 85 L, Carbon Dioxide 30.2, Anion Gap 8, BUN 5, Creatinine 0.62 L, Estim Creat Clear Calc 125.30, Est GFR (MDRD) Non-Af 104, BUN/Creatinine Ratio 7.7 L, Glucose 129 H, Lactic Acid 1.6, Calcium 8.8, Total Bilirubin 0.26, Direct Bilirubin 0.13, AST 14, ALT 5, Alkaline Phosphatase 70, Troponin T High Sens 9, NT pro BNP II 882, Total Protein 7.9, Albumin 3.6, Globulin 4.3 H, Valproic Acid 75 03/03/25 20:34: Urine Color Straw, Urine Clarity Clear, Urine pH 7.0, Ur Specific [place] 1.005, Urine Protein Negative, Urine Glucose (UA) Normal, Urine Ketones Negative, Urine Occult Blood 10 H, Urine Nitrite Negative, Urine Bilirubin Negative, Urine Urobilinogen Normal, Ur Leukocyte Esterase Negative, Urine RBC 0 SEEN, Urine WBC 0 SEEN, Ur Squamous Epith Cells 0 SEEN, Urine Bacteria RARE, Urine Mucus 0 SEEN 03/03/25 22:30: Phosphorus 4.5, Magnesium 2.1, Troponin T Hi Sens 2 Hr 10, Procalcitonin 0.05 03/03/25 23:24: Troponin T Hi Sens 4Hr 10 03/04/25 05:11: POC Glucose 137 H Micro: Microbiology 03/03/25 23:34 Interface Orders Respiratory Panel (PCR) - Final Rhinovirus Radiography Diagnostic Testing: Radiology Impression Chest X-Ray 03/03/25 19:27 IMPRESSION: Findings compatible with interstitial edema. Reading Location: [facility] Chest CTA 03/03/25 20:45 IMPRESSION: *No evidence of pulmonary edema or acute findings in the thorax. *Bibasilar atelectasis. *Trace pericardial effusion. Reading Location: [facility] Physical Exam Narrative Seen and examined. Patient is sleeping, snoring hard. Stridor from throat. Still drowsy on waking up. Physical exam General: Alert, Oriented x3, Cooperative HEENT: Atraumatic, PERRLA, EOMI, Normocephalic Oral:Upper airway wheezing and snorting sound. Thick white neck Neck: Supple, No JVD, Negative Carotid Bruits Chest wall/Lungs: Air entry diminished in in all lung villarreal Cardiovascular: Regular rate, Regular Rhythm, Normal S1, Normal S2, No M/G/R Abdomen: Bowel Sounds Present, Soft, Non Tender, Non-Distended : No dysuria. No renal angle tenderness. No suprapubic tenderness. Extremities: 2+ pitting edema, Capillary Refill Less than 3 Seconds Skin: Multiple small skin superficial scar tissue in upper thigh and groin area possible hidradenitis. No open ulcer. Musculoskeletal: ROM restricted Neurological: Left-sided facial droop,Chronic. Detailed neuro exam unobtainable patient is sleepy/drowsy Psych/Mental Status: Drowsy sleep Assessment & Plan Assessment/Plan (1) Asthma exacerbation in COPD: (2) Hypoxia: PLAN: Plan The patient is a 69 y/o M was admitted with shortness of breath from SNF, was started on Lasix and breathing treatment with [facility]. Not on home oxygen. Patient does not have any known cardiac disease. Pulse ox mid 80s on room air in ED. 1. Mild hypoxia most likely suspected pulmonary edema, acute on chronic HFrEF: Chest x-ray done in ED shows mild facial edema but CTA did not show evidence of pulmonary edema or acute findings. No PE. Bibasilar atelectasis. Patient was given IV Lasix in the ED. twelve-lead EKG shows sinus rhythm without evidence of ischemia. 5/5: proBNP high normal, 882. 2D echo shows EF 40 to 45%, suspected inferior hypokinesis., Technically difficult study. Metoprolol ordered for tomorrow a.m. Continue furosemide 40 mg IV twice daily. Heart failure core measures #2. Moderate hyponatremia, hypotonic hypervolemic type: Sodium 123. Repeat 122. Potassium, K5.1 on high normal, repeat 4.9. Monitor serum sodium. #3. Suspected Chronic normocytic anemia: Admission hemoglobin 10.6, MCV 82.8, unclear previous baseline, early in the day hemoglobin assessment 10.6, will continue to trend, will obtain iron panel, ferritin, vitamin B12 and folic acid levels. #4. Paranoid schizophrenia/chronic insomnia: patient home Depakote, lorazepam as needed as well as Zyprexa regimen. Hold paliperidone injection. #5. Dementia, with chronic alcohol dependence #6. Diabetes mellitus type II: Hold oral home regimen, Accu-Chek before meals and at bedtime with Humalog sliding scale coverage and hypoglycemia protocol. #7. Hypertension: Continue home regimen including lisinopril with hold parameters as needed, PRN hydralazine. #8. Hyperlipidemia: Lipid profile ordered. Atorvastatin 40 mg daily at bedtime started. #9. Morbid Obesity: Weight loss and lifestyle changes encouraged. #10. Former alcohol abuse: Encouraged continued alcohol cessation, currently residing in longterm facility. #11. Tobacco Abuse: Encouraged cessation, inpatient consultation per RT, NR if desired. #12. BPH with chronic bladder outlet obstruction: Will continue patient on Flomax regimen, monitor for urinary retention. #13. DVT prophylaxis: Lovenox. #14. CODE status: Full Code per facility paperwork. [place]. Clinical Impression(s) from Imaging Studies Chest X-Ray 03/03/25 19:27 IMPRESSION: Findings compatible with interstitial edema. Chest CTA 03/03/25 20:45 IMPRESSION: *No evidence of pulmonary edema or acute findings in the thorax. *Bibasilar atelectasis. *Trace pericardial effusion. Echocardiogram 03/04/25 05:55 Interpretation Summary Technically difficult study. Limited study with suboptimal views. Estimated LVEF 40 to 45%. Suspect inferior hypokinesis. Charges/Coding Visit Charges Inpatient E&M: 55829 Subs Hosp L2
--- NOTE | 2025-03-04 09:41 | CASEMGMT ---
NAMRATA called patient's guardian Ely Bhat and left her a voice mail requesting a return call regarding patient's discharge plan. NAMRATA received a return call from Ely. NAMRATA did not have a good phone connection so it was very difficult to understand her. Ely did tell SW plan is for patient to go back to [facility] when ready. Fidelina Alvarado PROCESS PROJECT ENGINEER SIGNALLING AND COMMUNICATIONS ENGINEER
[2025-03-04] MEDS: Menthol/Lanolin/Calamine/Znox 113 GM Tube 1 APPLIC TOPICAL ×3 (10:04→16:57)
[2025-03-04] MEDS: Aspirin E.C. 81 MG Tablet PO (10:05)
[2025-03-04] MEDS: Tamsulosin HCl 0.4 MG Capsule PO (10:05)
[2025-03-04] MEDS: Enoxaparin 40 MG/0.4 ML Syringe SC ×2 (10:06→22:14)
[2025-03-04] MEDS: Lisinopril 20 MG Tablet PO (10:06)
[2025-03-04] MEDS: Divalproex Sodium 125 MG SPRINKLE 500 MG PO (10:06)
[2025-03-04] MEDS: Furosemide 40 MG/4 ML Vial IV ×2 (10:07→18:17)
[2025-03-04] MEDS: OLANZapine 10 MG Tablet PO (10:07)
--- NOTE | 2025-03-04 10:51 | CPS ---
This RT found pt on RA, with the NC hanging from his ear. RT checked his sat, pt was 80%. Rt placed pt back in NC of 2L at this time.
[2025-03-04 12:15] LABS: Bedside Glucose 177 mg/dL (74-106)
--- NOTE | 2025-03-04 13:26 | WOUNDNOTE ---
Was asked by Dr Cornell to see patient for open area to the thigh. pt is up in the chair. no open areas noted that this nurse could find. will assess again after pt returns to the bed.
[2025-03-04] MEDS: Mupirocin Ointment 22gm Tube 1 APPLIC TOPICAL ×2 (13:35→22:15)
[2025-03-04] MEDS: Insulin Lispro 100 UNIT/ML INSULN.PEN SC ×2 (13:36→22:10)
[2025-03-04] MEDS: Nystatin Powder 15gm Bottle 1 APPLIC TOPICAL (14:57)
--- NOTE | 2025-03-04 16:05 | CPS ---
Started pt on breathing treat, pt then took treatment off saying he didn't want the treatment now.
[2025-03-04 17:15] LABS: Bedside Glucose 109 mg/dL (74-106)
[2025-03-04 17:24] LABS: Absolute Lymphocyte Count 0.95 X10^3/uL (0.83-4.51); Absolute Neutrophil Count 5.6 X10^3/uL (2.0-7.7); Basophil# 0.01 X10^3/uL; Basophil% 0.1 % (0-1); Hematocrit 35.2 % (40-54); Hemoglobin 10.8 g/dL (13.0-16.5); Lymphocyte # 0.95 X10^3/ul (0.83-4.51); Lymphocyte % 12.3 % (19-41); Mean Corp Hgb Conc 30.7 g/dL (32-36); Mean Corpuscular Hgb 25.7 pg (27.0-32.0); Mean Corpuscular Volume 83.8 fL (80-94); Mean Platelet Vol. 8.4 fl (6.2-12.0); Monocyte# 1.18 X10^3/uL; Monocyte% 15.3 % (0-10); NRBC Flagged by Analyzer 0 % (0-5); Neutrophil # 5.56 X10^3/uL (2.7-7.7); Neutrophil % 71.9 % (47-70); Platelet Count 223 K/mm3 (150-450); RBC Distribution Width CV 15.7 % (11.6-14.6); RBC Distribution Width SD 47.8 fl (35.1-43.9); White Blood Count 7.7 K/mm3 (4.4-11.0)
[2025-03-04 18:04] LABS: Cholesterol 138 mg/dL (<=200); High Density Lipoprotein 51 mg/dL; Low Density Lipoprotein Calc. 75 mg/dL; Triglycerides 60 mg/dL; Very Low Density Lipoprotein 12 mg/dL (5-40)
[2025-03-04 18:49] LABS: Ferritin 35 ng/mL (37-417); Thyroid Stim Hormone (TSH) 0.383 uIU/mL (0.300-4.200)
[2025-03-04 19:28] LABS: ALB/GLOB Ratio 0.8 RATIO (0.9-2.4); AST(SGOT) 12 U/L (<=37); Alanine Aminotransfer ALT/SGPT < 5 U/L (<=46); Albumin, Serum 3.6 g/dL (3.4-4.8); Alkaline Phosphatase 65 U/L (40-129); Anion Gap 7 (5-15); BUN 13 mg/dL (4-19); Calcium,Total 8.8 mg/dL (7.6-11.0); Carbon Dioxide 32.9 mmol/L (21.0-32.0); Chloride 87 mmol/L (98-108); Creatinine, Serum 0.83 mg/dL (0.70-1.20); EST Glomerular Filtration Rate 95 (>60); Estimated Creatinine Clearance 123.25 ml/min (50-250); Globulin 4.3 g/dL (2.2-4.2); Glucose 105 mg/dL (70-99); Iron 25 ug/dL (65-175); Iron Binding Capacity,Total 369 ug/dL (250-450); Iron Binding Capacity,Unsat 344 ug/dL (228-428); Potassium 5.3 mmol/L (3.3-5.1); Protein, Total 7.9 g/dL (5.9-8.4); Sodium Level 127 mmol/L (133-145); Total Bilirubin 0.21 mg/dL (0.00-1.30); Vitamin B12 675 pg/mL (180-914)
--- NOTE | 2025-03-04 19:30 | NURSING ---
Pt ripped out accucath IV at 1900. Patient stated to RN that he didnt want the IV in anymore and if we try to put another one in he will rip that one out too.
[2025-03-04 19:55] LABS: Hemoglobin A1c 5.7 % (<=5.6)
[2025-03-04] MEDS: Divalproex Sodium 125 MG SPRINKLE 750 MG PO (22:17)
[2025-03-04] MEDS: Atorvastatin Calcium 40 MG Tablet PO (22:19)
[2025-03-04] MEDS: MELATONIN 3 MG TABLET PO (22:19)
[2025-03-04 22:50] LABS: Bedside Glucose 199 mg/dL (74-106)
[2025-03-05] VITALS (9 sets, daily range): BP systolic 101–131; BP diastolic 64–78; PULSE 86–95; RESP 20; TEMP 36.2–36.7; O2SAT 91–99; BMI 43.1
[2025-03-05 02:01] LABS: FOLATES,SERUM (FOLIC ACID) 6.28 ng/mL (4.60-34.80)
[2025-03-05] MEDS: Insulin Lispro 100 UNIT/ML INSULN.PEN SC (06:19)
[2025-03-05 06:40] LABS: Bedside Glucose 161 mg/dL (74-106)
--- NOTE | 2025-03-05 09:30 | CASEMGMT ---
Discharge Planning Updates faxed to [facility]. Catrachita Escobedo DC Planning Asst.
--- NOTE | 2025-03-05 09:44 | PN.HOSP_ITS ---
Reason for Visit Reason for Visit: Diagnoses Chronic obstructive pulmonary disease with (acute) exacerbation (03/03/25) Hypoxemia (03/03/25) Objective Data Objective Data Vital Signs: Vital Signs Temp Pulse Resp BP Pulse Ox O2 Del Method O2 Flow Rate 98.1 F 95 20 H 111/68 94 Nasal Cannula 3 03/05/25 04:00 03/05/25 04:00 03/05/25 04:00 03/05/25 04:00 03/05/25 04:00 03/05/25 04:00 03/05/25 09:00 Oxygen Flow Rate (L/min) 3 Oxygen Delivery Method Nasal Cannula Weight: 309 lb 1.409 oz Body Mass Index (BMI) 43.1 Intake & Output: Intake and Output for Last 24 Hours 03/03/25 03/04/25 03/05/25 23:59 23:59 23:59 Intake Total 1140 / 1620 660 / 660 Output Total 2100 / 2200 300 / 300 Balance -960 / -580 360 / 360 Lab / Micro Data 03/04/25 17:00 03/04/25 17:00 Labs: Laboratory Results - last 24 hr 03/04/25 11:56: POC Glucose 177 H 03/04/25 16:56: POC Glucose 109 H 03/04/25 17:00: WBC 7.7, RBC 4.20 L, Hgb 10.8 L, Hct 35.2 L, MCV 83.8, MCH 25.7 L, MCHC 30.7 L, RDW Std Deviation 47.8 H, RDW Coeff of Jann 15.7 H, Plt Count 223, MPV 8.4, Immature Gran % (Auto) 0.400, Neut % (Auto) 71.9 H, Lymph % (Auto) 12.3 L, Bland % (Auto) 15.3 H, Eos % (Auto) 0.0, Baso % (Auto) 0.1, Absolute Neuts (auto) 5.6, Absolute Lymphs (auto) 0.95, Nucleated RBC % 0, Sodium 127 L, Potassium 5.3 H, Chloride 87 L, Carbon Dioxide 32.9 H, Anion Gap 7, BUN 13, Creatinine 0.83, Estim Creat Clear Calc 123.25, Est GFR (MDRD) Non-Af 95, BUN/Creatinine Ratio 15.0, Glucose 105 H, Hemoglobin A1c 5.7, Calcium 8.8, Iron 25 L, TIBC 369, Iron Saturation 7.0 L, Unsaturated IBC 344, Ferritin 35 L, Total Bilirubin 0.21, AST 12, ALT < 5, Alkaline Phosphatase 65, Total Protein 7.9, Albumin 3.6, Globulin 4.3 H, Albumin/Globulin Ratio 0.8 L, Triglycerides 60, Cholesterol 138, LDL Cholesterol, Calc 75, VLDL Cholesterol 12, HDL Cholesterol 51, Cholesterol/HDL Ratio 2.70, Vitamin B12 675, Serum Folate 6.28, TSH 0.383 03/04/25 22:09: POC Glucose 199 H 03/05/25 06:18: POC Glucose 161 H Micro: Microbiology 03/03/25 23:34 Interface Orders Respiratory Panel (PCR) - Final Rhinovirus Radiography Diagnostic Testing: Radiology Impression Echocardiogram 03/04/25 05:55 Interpretation Summary Technically difficult study. Limited study with suboptimal views. Estimated LVEF 40 to 45%. Suspect inferior hypokinesis. Ordering Physician: Fidelina Uriostegui Referring Physician: CHRISTAL CHUNG Performed By: Glenna Lujan RCS Physical Exam Narrative Seen and examined. Patient has paranoid schizophrenia and delusional disorder. He is talking to himself, could not understand most sentences. He can tell me his name and date of Mild wheezing. Physical exam General: Alert, Oriented x3, Cooperative HEENT: Atraumatic, PERRLA, EOMI, Normocephalic Oral:Upper airway wheezing. Short and wide neck Neck: Supple, No JVD, Negative Carotid Bruits Chest wall/Lungs: Air entry diminished in in all lung villarreal Cardiovascular: Regular rate, Regular Rhythm, Normal S1, Normal S2, No M/G/R Abdomen: Bowel Sounds Present, Soft, Non Tender, Non-Distended : No dysuria. No renal angle tenderness. No suprapubic tenderness. Extremities: 2+ pitting edema, Capillary Refill Less than 3 Seconds Skin: Multiple small skin superficial scar tissue in upper thigh and groin area possible hidradenitis. No open ulcer. Musculoskeletal: ROM restricted Neurological: Left-sided facial droop,Chronic. Detailed neuro exam unobtainable patient is sleepy/drowsy Psych/Mental Status: Chronic schizophrenia, delusional disorder. Assessment & Plan Assessment/Plan (1) Asthma exacerbation in COPD: (2) Hypoxia: PLAN: Plan The patient is a 69 y/o M was admitted with shortness of breath from SNF, was started on Lasix and breathing treatment with skilled nursing. Not on home oxygen. Patient does not have any known cardiac disease. Pulse ox mid 80s on room air in ED. 1. Mild hypoxia most likely suspected pulmonary edema, acute on chronic HFrEF: Chest x-ray done in ED shows mild facial edema but CTA did not show evidence of pulmonary edema or acute findings. No PE. Bibasilar atelectasis. Patient was given IV Lasix in the ED. twelve-lead EKG shows sinus rhythm without evidence of ischemia. 5/5: proBNP high normal, 882. 2D echo shows EF 40 to 45%, suspected inferior hypokinesis., Technically difficult study. Metoprolol ordered for tomorrow a.m. Continue furosemide 40 mg IV twice daily. Heart failure core measures 5/6: Continue diuretics. Leg swelling is better. Baby has been, on metoprolol and atorvastatin. #2. Moderate hyponatremia, hypotonic hypervolemic type: Sodium 123. Repeat 122. Potassium, K5.1 on high normal, repeat 4.9. Monitor serum sodium. /6: Sodium is better 127. Potassium 5.3. Anion gap normal. #3. Suspected Chronic normocytic anemia: Admission hemoglobin 10.6, MCV 82.8, unclear previous baseline, early in the day hemoglobin assessment 10.6, will continue to trend, will obtain iron panel, ferritin, vitamin B12 and folic acid levels. #4. Paranoid schizophrenia/chronic insomnia, delusional disorder and dementia with chronic alcohol use disorder: patient home Depakote, lorazepam as needed as well as Zyprexa regimen. Hold paliperidone injection. #5. Chronic iron-deficiency anemia and anemia of chronic disease: H&H 10.8/35.2%. Anemia workup shows iron saturation low 7.0, low serum iron ferritin 35 suggestive of chronic iron deficiency anemia. IV iron ordered. B12 and folic acid normal. TSH normal. #6. Diabetes mellitus type II: Hold oral home regimen, Accu-Chek before meals and at bedtime with Humalog sliding scale coverage and hypoglycemia protocol. #7. Hypertension: Continue home regimen including lisinopril with hold parameters as needed, PRN hydralazine. #8. Hyperlipidemia: Lipid profile in normal limit. Atorvastatin 40 mg daily at bedtime started. #9. Morbid Obesity: Weight loss and lifestyle changes encouraged. #10. Former alcohol abuse: Encouraged continued alcohol cessation, currently residing in longterm facility. #11. Tobacco Abuse: Encouraged cessation, inpatient consultation per RT, NR if desired. #12. BPH with chronic bladder outlet obstruction: Will continue patient on Flomax regimen, monitor for urinary retention. #13. DVT prophylaxis: Decrease Lovenox from 40 mg subcu twice daily to once daily, because of the anemia #14. CODE status: Full Code per facility paperwork. [facility]. Microbiology Past 72 Hours 03/03/25 23:34 Interface Orders Respiratory Panel (PCR) - Final Rhinovirus Laboratory Results 03/04/25 16:56: POC Glucose 109 H 03/04/25 17:00: WBC 7.7, RBC 4.20 L, Hgb 10.8 L, Hct 35.2 L, MCV 83.8, MCH 25.7 L, MCHC 30.7 L, RDW Std Deviation 47.8 H, RDW Coeff of Jann 15.7 H, Plt Count 223, MPV 8.4, Immature Gran % (Auto) 0.400, Neut % (Auto) 71.9 H, Lymph % (Auto) 12.3 L, Bland % (Auto) 15.3 H, Eos % (Auto) 0.0, Baso % (Auto) 0.1, Absolute Neuts (auto) 5.6, Absolute Lymphs (auto) 0.95, Nucleated RBC % 0, Sodium 127 L, Potassium 5.3 H, Chloride 87 L, Carbon Dioxide 32.9 H, Anion Gap 7, BUN 13, Creatinine 0.83, Estim Creat Clear Calc 123.25, Est GFR (MDRD) Non-Af 95, BUN/Creatinine Ratio 15.0, Glucose 105 H, Hemoglobin A1c 5.7, Calcium 8.8, Iron 25 L, TIBC 369, Iron Saturation 7.0 L, Unsaturated IBC 344, Ferritin 35 L, Total Bilirubin 0.21, AST 12, ALT < 5, Alkaline Phosphatase 65, Total Protein 7.9, Albumin 3.6, Globulin 4.3 H, Albumin/Globulin Ratio 0.8 L, Triglycerides 60, Cholesterol 138, LDL Cholesterol, Calc 75, VLDL Cholesterol 12, HDL Cholesterol 51, Cholesterol/HDL Ratio 2.70, Vitamin B12 675, Serum Folate 6.28, TSH 0.383 03/04/25 22:09: POC Glucose 199 H 03/05/25 06:18: POC Glucose 161 H 03/05/25 12:15: POC Glucose 138 H Clinical Impression(s) from Imaging Studies Chest X-Ray 03/03/25 19:27 IMPRESSION: Findings compatible with interstitial edema. Chest CTA 03/03/25 20:45 IMPRESSION: *No evidence of pulmonary edema or acute findings in the thorax. *Bibasilar atelectasis. *Trace pericardial effusion. Echocardiogram 03/04/25 05:55 Interpretation Summary Technically difficult study. Limited study with suboptimal views. Estimated LVEF 40 to 45%. Suspect inferior hypokinesis. Charges/Coding Visit Charges Inpatient E&M: 90228 Subs Hosp L2
--- NOTE | 2025-03-05 10:52 | NURSING ---
0830-Pt sleeping quietly in bed at this time with no s/sx of distress noted, respirations equal and unlabored. Will come back at a later time to see pt. 1045-This RN into room to assess pt, obtain vs and give medications. Pt observed sitting up in chair resting quietly. Pt woke to voice. Informed pt of who I was and POC. Pt irritated with nurse and stated I ain't doing nothin. You be talking all kinds of shit. Advised pt that he is in the hospital and that this nurse will come back in a little while to try again to asses, get VS and give medications. Pt stated as long as it's in a while.
[2025-03-05] MEDS: Furosemide 40 MG/4 ML Vial IV ×2 (11:52→16:54)
[2025-03-05] MEDS: Ipratropium/Albuterol Sulfate 3 ML AMPUL.NEB INHALATION ×2 (11:59→20:25)
[2025-03-05] MEDS: Metoprolol Tartrate 25 MG Tablet PO ×2 (12:03→21:10)
[2025-03-05] MEDS: Aspirin E.C. 81 MG Tablet PO (12:04)
[2025-03-05] MEDS: Tamsulosin HCl 0.4 MG Capsule PO (12:04)
[2025-03-05] MEDS: Divalproex Sodium 125 MG SPRINKLE 500 MG PO (12:04)
[2025-03-05] MEDS: Lisinopril 20 MG Tablet PO (12:04)
[2025-03-05] MEDS: OLANZapine 10 MG Tablet PO (12:04)
[2025-03-05] MEDS: Enoxaparin 40 MG/0.4 ML Syringe SC (12:09)
[2025-03-05 12:34] LABS: Bedside Glucose 138 mg/dL (74-106)
[2025-03-05] MEDS: Sodium Ferric Gluconat/Sucrose 250 MG in 0.9% Normal Saline (250mL Bag) 250 ML 135 MG IV (17:17)
[2025-03-05 17:21] LABS: Bedside Glucose 136 mg/dL (74-106)
[2025-03-05] MEDS: MELATONIN 3 MG TABLET PO (21:08)
[2025-03-05] MEDS: LORazepam 1 MG Tablet PO (21:08)
[2025-03-05] MEDS: Divalproex Sodium 125 MG SPRINKLE 750 MG PO (21:08)
[2025-03-05] MEDS: Atorvastatin Calcium 40 MG Tablet PO (21:10)
[2025-03-05 22:06] LABS: Bedside Glucose 148 mg/dL (74-106)
[2025-03-06 04:00] VITALS: BP 118/64; PULSE 96; RESP 20; TEMP 36.7; O2SAT 88
[2025-03-06 04:22] VITALS: O2SAT 92
[2025-03-06 05:37] VITALS: BMI 44.1
[2025-03-06] MEDS: Insulin Lispro 100 UNIT/ML INSULN.PEN SC (06:10)
[2025-03-06 06:15] VITALS: PULSE 75; RESP 18; O2SAT 94
[2025-03-06 06:35] LABS: Bedside Glucose 160 mg/dL (74-106)
[2025-03-06 06:47] LABS: Absolute Lymphocyte Count 1.23 X10^3/uL (0.83-4.51); Absolute Neutrophil Count 6.2 X10^3/uL (2.0-7.7); Basophil# 0.02 X10^3/uL; Basophil% 0.2 % (0-1); Hematocrit 34.4 % (40-54); Hemoglobin 10.5 g/dL (13.0-16.5); Lymphocyte # 1.23 X10^3/ul (0.83-4.51); Lymphocyte % 14.5 % (19-41); Mean Corp Hgb Conc 30.5 g/dL (32-36); Mean Corpuscular Hgb 25.9 pg (27.0-32.0); Mean Corpuscular Volume 84.7 fL (80-94); Mean Platelet Vol. 8.5 fl (6.2-12.0); Monocyte# 0.94 X10^3/uL; Monocyte% 11.1 % (0-10); NRBC Flagged by Analyzer 0 % (0-5); Neutrophil % 73.1 % (47-70); Platelet Count 214 K/mm3 (150-450); RBC Distribution Width CV 15.6 % (11.6-14.6); RBC Distribution Width SD 48.2 fl (35.1-43.9); RET-HE 25.5 pg (30-35); Red Blood Count 4.06 M/mm3 (4.6-6.2); Reticulocyte Count 2.09 % (0.5-1.5); White Blood Count 8.5 K/mm3 (4.4-11.0)
[2025-03-06 07:12] LABS: Anion Gap 8 (5-15); BUN 33 mg/dL (4-19); Calcium,Total 8.6 mg/dL (7.6-11.0); Chloride 88 mmol/L (98-108); Creatinine, Serum 1.13 mg/dL (0.70-1.20); EST Glomerular Filtration Rate 71 (>60); Estimated Creatinine Clearance 90.78 ml/min (50-250); Glucose 166 mg/dL (70-99); Potassium 5.8 mmol/L (3.3-5.1); Sodium Level 128 mmol/L (133-145)
[2025-03-06 07:39] VITALS: O2SAT 94
[2025-03-06 10:12] VITALS: BP 103/59; PULSE 91; RESP 17; TEMP 36.9; O2SAT 90
[2025-03-06 10:19] VITALS: BP 103/59; PULSE 91
--- NOTE | 2025-03-06 10:39 | PCM.TXEXTCAR ---
Diet Diet Order/Speech Therapy: 03/04/25 15:53 Carb [Diet: Carbohydrate Controlled] Food consistency:: Easy to Chew Liquid Consistency:: Regular/Thin Dietary Modifications:: Cardiac / Heart Healthy Fluid restriction:: 1500 mL Diet Comments: Distant supervision, meds whole in , plastic silverware, no knives Routine Orders/Code Status Suppository Type: Dulcolax 10mg Suppository Frequency: Daily PRN DC O2, CPAP, BIPAP needs Home O2 Discharge instructions: Yes Type of respiratory needs?: Oxygen Oxygen frequency: Continuous Continuous oxygen liters per minute: 3 Therapies Extremity Affected:: Bilateral Lower Physical Therapy: Eval and Treat Occupational Therapy: Eval and Treat Speech Therapy: Eval and Treat Problem/Diagnosis (1) Asthma exacerbation in COPD: Status: Chronic Code(s): J44.1 - Chronic obstructive pulmonary disease with (acute) exacerbation (2) Hypoxia: Status: Acute Code(s): R09.02 - Hypoxemia Plan The patient is a 69 y/o M was admitted with shortness of breath from SNF, was started on Lasix and breathing treatment with longterm. Not on home oxygen. Patient does not have any known cardiac disease. Pulse ox mid 80s on room air in ED. 1. Mild hypoxia most likely suspected pulmonary edema, acute on chronic HFrEF: Chest x-ray done in ED shows mild facial edema but CTA did not show evidence of pulmonary edema or acute findings. No PE. Bibasilar atelectasis. Patient was given IV Lasix in the ED. twelve-lead EKG shows sinus rhythm without evidence of ischemia. 5/: proBNP high normal, 882. 2D echo shows EF 40 to 45%, suspected inferior hypokinesis., Technically difficult study. Metoprolol ordered for tomorrow a.m. Continue furosemide 40 mg IV twice daily. Heart failure core measures 5/6: Continue diuretics. Leg swelling is better. Baby has been, on metoprolol and atorvastatin. 5/ blood pressure oxygenation is 2 to 3 L/min. Patient is discharged on diuretics #2. Moderate hyponatremia, hypotonic hypervolemic type: Sodium 123. Repeat 122. Potassium, K5.1 on high normal, repeat 4.9. Monitor serum sodium. 5/6: Sodium is better 127. Potassium 5.3. Anion gap normal. 7: Serum sodium is low but better than. #3. Suspected Chronic normocytic anemia: Admission hemoglobin 10.6, MCV 82.8, unclear previous baseline, early in the day hemoglobin assessment 10.6, will continue to trend, will obtain iron panel, ferritin, vitamin B12 and folic acid levels. #4. Paranoid schizophrenia/chronic insomnia, delusional disorder and dementia with chronic alcohol use disorder: patient home Depakote, lorazepam as needed as well as Zyprexa regimen. Hold paliperidone injection. #5. Chronic iron-deficiency anemia and anemia of chronic disease: H&H 10.8/35.2%. Anemia workup shows iron saturation low 7.0, low serum iron ferritin 35 suggestive of chronic iron deficiency anemia. IV iron ordered. B12 and folic acid normal. TSH normal. #6. Diabetes mellitus type II: Hold oral home regimen, Accu-Chek before meals and at bedtime with Humalog sliding scale coverage and hypoglycemia protocol. #7. Hypertension: Continue home regimen including lisinopril with hold parameters as needed, PRN hydralazine. #8. Hyperlipidemia: Lipid profile in normal limit. Atorvastatin 40 mg daily at bedtime started. #9. Morbid Obesity: Weight loss and lifestyle changes encouraged. #10. Former alcohol abuse: Encouraged continued alcohol cessation, currently residing in custodial facility. #11. Tobacco Abuse: Encouraged cessation, inpatient consultation per RT, NR if desired. #12. BPH with chronic bladder outlet obstruction: Will continue patient on Flomax regimen, monitor for urinary retention. #13. DVT prophylaxis: Decrease Lovenox from 40 mg subcu twice daily to once daily, because of the anemia #14. CODE status: Full Code per facility paperwork. [facility]. Microbiology Past 72 Hours 03/03/25 23:34 Interface Orders Respiratory Panel (PCR) - Final Rhinovirus Laboratory Results 03/04/25 16:56: POC Glucose 109 H 03/04/25 17:00: WBC 7.7, RBC 4.20 L, Hgb 10.8 L, Hct 35.2 L, MCV 83.8, MCH 25.7 L, MCHC 30.7 L, RDW Std Deviation 47.8 H, RDW Coeff of Jann 15.7 H, Plt Count 223, MPV 8.4, Immature Gran % (Auto) 0.400, Neut % (Auto) 71.9 H, Lymph % (Auto) 12.3 L, Sutter % (Auto) 15.3 H, Eos % (Auto) 0.0, Baso % (Auto) 0.1, Absolute Neuts (auto) 5.6, Absolute Lymphs (auto) 0.95, Nucleated RBC % 0, Sodium 127 L, Potassium 5.3 H, Chloride 87 L, Carbon Dioxide 32.9 H, Anion Gap 7, BUN 13, Creatinine 0.83, Estim Creat Clear Calc 123.25, Est GFR (MDRD) Non-Af 95, BUN/Creatinine Ratio 15.0, Glucose 105 H, Hemoglobin A1c 5.7, Calcium 8.8, Iron 25 L, TIBC 369, Iron Saturation 7.0 L, Unsaturated IBC 344, Ferritin 35 L, Total Bilirubin 0.21, AST 12, ALT < 5, Alkaline Phosphatase 65, Total Protein 7.9, Albumin 3.6, Globulin 4.3 H, Albumin/Globulin Ratio 0.8 L, Triglycerides 60, Cholesterol 138, LDL Cholesterol, Calc 75, VLDL Cholesterol 12, HDL Cholesterol 51, Cholesterol/HDL Ratio 2.70, Vitamin B12 675, Serum Folate 6.28, TSH 0.383 03/04/25 22:09: POC Glucose 199 H 03/05/25 06:18: POC Glucose 161 H 03/05/25 12:15: POC Glucose 138 H Clinical Impression(s) from Imaging Studies Chest X-Ray 03/03/25 19:27 IMPRESSION: Findings compatible with interstitial edema. Chest CTA 03/03/25 20:45 IMPRESSION: *No evidence of pulmonary edema or acute findings in the thorax. *Bibasilar atelectasis. *Trace pericardial effusion. Echocardiogram 03/04/25 05:55 Interpretation Summary Technically difficult study. Limited study with suboptimal views. Estimated LVEF 40 to 45%. Suspect inferior hypokinesis. Allergies/Procedures Done in Hospital Allergies lithium Allergy (Intermediate, Verified 03/03/25 18:48) PT UNSURE OF REACTION Type of Care/Length of Stay Estimated LOS: Convalescent Care Less Than 30 days Type of Care Needed: Skilled Rehab Potential: Good Prognosis: Good Additional Orders/Day of Discharge Day of Discharge: 03/06/25 Dietary and Speech Recommendations Dietitian Recommendations/Changes: Adjust to cardiac, consistent carbohydrate diet with 1500ml fluid restriction per MD orders. Will monitor weight trends. Discharge Plan Admission Admit Date/Time: 03/03/25 22:15 Primary Reason for Your Visit: Acute heart failure exacerbation Attending Provider: Ricardo Cornell Primary Care Provider: Austen Schmitz Consulting Providers: Fidelina Uriostegui; Lauren Orr Discharge Orders/Prescriptions Prescriptions: New atorvastatin 40 mg Tablet 40 mg PO QHS Qty: 0 0RF sennosides-docusate sodium [Stimulant Laxative Plus] 8.6-50 mg Tablet 2 tab PO BID PRN PRN (Reason: Constipation) Qty: 0 0RF aspirin 81 mg Tablet,Delayed Release (Dr/Ec) 81 mg PO BREAKFAST Qty: 0 0RF metoprolol tartrate 25 mg Tablet 50 mg PO BID Qty: 0 0RF furosemide [Lasix] 40 mg tablet 40 mg PO BID Qty: 60 0RF Continued Erzofri 234 mg/1.5 mL syringe 234 mg IM Q28D ipratropium-albuterol 0.5 mg-3 mg(2.5 mg base)/3 mL solution for nebulization 3 ml inhalation Q8H Patient Comments: For three days (started 03/03/25) metformin 500 mg tablet 500 mg PO BID multivitamin [Daily Multi-Vitamin] Tablet 1 tab PO DAILY prednisone 20 mg tablet 40 mg PO DAILY Rx Instructions: stop 03/08/25 tamsulosin 0.4 mg capsule 0.4 mg PO Q24H cholecalciferol (vitamin D3) 25 mcg (1,000 unit) tablet,chewable 25 mcg PO DAILY cholecalciferol (vitamin D3) 125 mcg (5,000 unit) capsule 125 mcg PO MO olanzapine [Zyprexa] 10 mg tablet 10 mg PO DAILY divalproex 125 mg capsule, delayed rel sprinkle 500 mg PO DAILY divalproex [Depakote Sprinkles] 125 mg capsule, delayed rel sprinkle 750 mg PO QHS lorazepam 1 mg tablet 1 mg PO Q6H PRN (Reason: agitation) acetaminophen [Tylenol] 325 mg tablet 650 mg PO Q4H PRN (Reason: headache) albuterol sulfate [Ventolin HFA] 90 mcg/actuation HFA aerosol inhaler 2 inh inhalation Q4H PRN (Reason: COPD) Held lisinopril 20 mg tablet 20 mg PO DAILY Hold Instructions: Hold for SBP less than 120 mmHg. Might need decrease the lisinopril dose to 5 or 10 mg Discontinued aspirin 81 mg capsule 81 mg PO DAILY Referrals / Follow Up: Paresh Randhawa DO [Med Staff - Active Staff] - Within 1 Month Gil Munoz MD [Med Staff - Active Staff] - Within 1 Month Austen Schmitz MD [Primary Care Provider] - Disposition Disposition (needs filled in before D/C Order can be placed): [facility] Facility
[2025-03-06] MEDS: OLANZapine 10 MG Tablet PO (10:42)
[2025-03-06] MEDS: Tamsulosin HCl 0.4 MG Capsule PO (10:42)
[2025-03-06] MEDS: Aspirin E.C. 81 MG Tablet PO (10:43)
[2025-03-06] MEDS: Divalproex Sodium 125 MG SPRINKLE 500 MG PO (10:43)
--- NOTE | 2025-03-06 11:47 | PCM.DC.SUM ---
Providers Date of Admission: 03/03/25 Date of Discharge: 03/06/25 Primary Care Physician: Dr. Austen Schmitz MD Consultations 03/04/25 11:01 Consult: Onc/Wound/crew trainer Routine Comment: Reason for Consult:: tiny lesion in upper thigh 03/06/25 08:58 Consult: Nephrology Routine Consulting Provider: Lauren Orr Reason for Consult: Hyponatremia, hyperkalemia. HF on diuretic EMERGENT Consult: No MD Notified: Yes Date Notified: 03/06/25 Time Notified: 08:58 Method of Notification: Text Reason For Visit: HYPOXIA, DECOMP HF, COPD EXAC Diagnosis Discharge Diagnosis (1) Asthma exacerbation in COPD: Status: Chronic Code(s): J44.1 - Chronic obstructive pulmonary disease with (acute) exacerbation (2) Hypoxia: Status: Acute Code(s): R09.02 - Hypoxemia Plan The patient is a 69 y/o M was admitted with shortness of breath from SNF, was started on Lasix and breathing treatment with care home. Not on home oxygen. Patient does not have any known cardiac disease. Pulse ox mid 80s on room air in ED. 1. Mild hypoxia most likely suspected pulmonary edema, acute on chronic HFrEF: Chest x-ray done in ED shows mild facial edema but CTA did not show evidence of pulmonary edema or acute findings. No PE. Bibasilar atelectasis. Patient was given IV Lasix in the ED. twelve-lead EKG shows sinus rhythm without evidence of ischemia. 5: proBNP high normal, 882. 2D echo shows EF 40 to 45%, suspected inferior hypokinesis., Technically difficult study. Metoprolol ordered for tomorrow a.m. Continue furosemide 40 mg IV twice daily. Heart failure core measures 6: Continue diuretics. Leg swelling is better. Baby has been, on metoprolol and atorvastatin. 03/06 blood pressure oxygenation is 2 to 3 L/min. Patient is discharged on diuretics. Continue guideline directed heart failure treatment. Follow-up in cardiology clinic. #2. Moderate hyponatremia, hypotonic hypervolemic type: Sodium 123. Repeat 122. Potassium, K5.1 on high normal, repeat 4.9. Monitor serum sodium. /6: Sodium is better 127. Potassium 5.3. Anion gap normal. 03/06: Serum sodium is low but better than. #3. Suspected Chronic normocytic anemia: Admission hemoglobin 10.6, MCV 82.8, unclear previous baseline, early in the day hemoglobin assessment 10.6, will continue to trend, will obtain iron panel, ferritin, vitamin B12 and folic acid levels. #4. Paranoid schizophrenia/chronic insomnia, delusional disorder and dementia with chronic alcohol use disorder: patient home Depakote, lorazepam as needed as well as Zyprexa regimen. Hold paliperidone injection. #5. Chronic iron-deficiency anemia and anemia of chronic disease: H&H 10.8/35.2%. Anemia workup shows iron saturation low 7.0, low serum iron ferritin 35 suggestive of chronic iron deficiency anemia. IV iron ordered. B12 and folic acid normal. TSH normal. #6. Diabetes mellitus type II: Hold oral home regimen, Accu-Chek before meals and at bedtime with Humalog sliding scale coverage and hypoglycemia protocol. #7. Hypertension: Continue home regimen including lisinopril with hold parameters as needed, PRN hydralazine. 03/06: BP is on lower side therefore held lisinopril. Patient on diuretic, furosemide. If BP goes up, lisinopril can be resumed with lower dose, may be 5 to 10 mg daily #8. Hyperlipidemia: Lipid profile in normal limit. Atorvastatin 40 mg daily at bedtime started. #9. Morbid Obesity: Weight loss and lifestyle changes encouraged. #10. Former alcohol abuse: Encouraged continued alcohol cessation, currently residing in alf facility. #11. Tobacco Abuse: Encouraged cessation, inpatient consultation per RT, NR if desired. #12. BPH with chronic bladder outlet obstruction: Will continue patient on Flomax regimen, monitor for urinary retention. #13. DVT prophylaxis: Decrease Lovenox from 40 mg subcu twice daily to once daily, because of the anemia #14. CODE status: Full Code per facility. Discharge medication reconciliation done. Discharge follow-up instructions completed. Discharge process discussed with the patient and all questions were answered to patient's satisfaction. Follow with PCP in 1 to 2 weeks Total time spent, exact 35 minutes on discharge meds reconciliation, examination, coordination of care with nurses and ancillary staff, review of imaging and blood test and discussion with the patient on follow-up instructions. Microbiology Past 72 Hours 03/03/25 23:34 Interface Orders Respiratory Panel (PCR) - Final Rhinovirus Laboratory Results 03/04/25 16:56: POC Glucose 109 H 03/04/25 17:00: WBC 7.7, RBC 4.20 L, Hgb 10.8 L, Hct 35.2 L, MCV 83.8, MCH 25.7 L, MCHC 30.7 L, RDW Std Deviation 47.8 H, RDW Coeff of Jann 15.7 H, Plt Count 223, MPV 8.4, Immature Gran % (Auto) 0.400, Neut % (Auto) 71.9 H, Lymph % (Auto) 12.3 L, [place] % (Auto) 15.3 H, Eos % (Auto) 0.0, Baso % (Auto) 0.1, Absolute Neuts (auto) 5.6, Absolute Lymphs (auto) 0.95, Nucleated RBC % 0, Sodium 127 L, Potassium 5.3 H, Chloride 87 L, Carbon Dioxide 32.9 H, Anion Gap 7, BUN 13, Creatinine 0.83, Estim Creat Clear Calc 123.25, Est GFR (MDRD) Non-Af 95, BUN/Creatinine Ratio 15.0, Glucose 105 H, Hemoglobin A1c 5.7, Calcium 8.8, Iron 25 L, TIBC 369, Iron Saturation 7.0 L, Unsaturated IBC 344, Ferritin 35 L, Total Bilirubin 0.21, AST 12, ALT < 5, Alkaline Phosphatase 65, Total Protein 7.9, Albumin 3.6, Globulin 4.3 H, Albumin/Globulin Ratio 0.8 L, Triglycerides 60, Cholesterol 138, LDL Cholesterol, Calc 75, VLDL Cholesterol 12, HDL Cholesterol 51, Cholesterol/HDL Ratio 2.70, Vitamin B12 675, Serum Folate 6.28, TSH 0.383 03/04/25 22:09: POC Glucose 199 H 03/05/25 06:18: POC Glucose 161 H 03/05/25 12:15: POC Glucose 138 H Clinical Impression(s) from Imaging Studies Chest X-Ray 03/03/25 19:27 IMPRESSION: Findings compatible with interstitial edema. Chest CTA 03/03/25 20:45 IMPRESSION: *No evidence of pulmonary edema or acute findings in the thorax. *Bibasilar atelectasis. *Trace pericardial effusion. Echocardiogram 03/04/25 05:55 Interpretation Summary Technically difficult study. Limited study with suboptimal views. Estimated LVEF 40 to 45%. Suspect inferior hypokinesis. Medications at Discharge Home Medications acetaminophen 325 mg tablet (Tylenol) 650 mg PO Q4H PRN headache 03/03/25 albuterol sulfate 90 mcg/actuation aerosol inhaler (Ventolin HFA) 2 inh inhalation Q4H PRN COPD 03/03/25 cholecalciferol (vitamin D3) 125 mcg (5,000 unit) capsule 125 mcg PO MO 03/03/25 cholecalciferol (vitamin D3) 25 mcg (1,000 unit) chewable tablet 25 mcg PO DAILY 03/03/25 divalproex 125 mg capsule,delayed release sprinkle 500 mg PO DAILY 03/03/25 divalproex 125 mg capsule,delayed release sprinkle (Depakote Sprinkles) 750 mg PO QHS 03/03/25 ipratropium 0.5 mg-albuterol 3 mg (2.5 mg base)/3 mL nebulization soln 3 ml inhalation Q8H Shortness of breath 03/03/25 lisinopril 20 mg tablet 20 mg PO DAILY 03/03/25 Held on 03/06/25. Instructions: Hold for SBP less than 120 mmHg. Might need decrease the lisinopril dose to 5 or 10 mg lorazepam 1 mg tablet 1 mg PO Q6H PRN agitation 03/03/25 metformin 500 mg tablet 500 mg PO BID 03/03/25 multivitamin (Daily Multi-Vitamin tablet) 1 tab PO DAILY 03/03/25 olanzapine 10 mg tablet (Zyprexa) 10 mg PO DAILY 03/03/25 paliperidone palmitate 234 mg/1.5 mL intramuscular syringe (Erzofri) 234 mg IM Q28D 03/03/25 prednisone 20 mg tablet 40 mg PO DAILY 03/03/25 tamsulosin 0.4 mg capsule 0.4 mg PO Q24H 03/03/25 aspirin 81 mg tablet,delayed release 81 mg PO BREAKFAST #0 tabs 03/06/25 atorvastatin 40 mg tablet 40 mg PO QHS #0 tabs 03/06/25 furosemide 40 mg tablet (Lasix) 40 mg PO BID #60 tabs 03/06/25 metoprolol tartrate 25 mg tablet 50 mg (2 x 25 mg) PO BID #0 tabs 03/06/25 sennosides 8.6 mg-docusate sodium 50 mg tablet (Stimulant Laxative Plus) 2 tab PO BID PRN PRN Constipation #0 tabs 03/06/25 Physical Exam Narrative Seen and examined. Patient has paranoid schizophrenia and delusional disorder. He is talking to himself, could not understand most sentences, throwing stuff on the table. Not cooperative. He can tell me his name and date of Physical exam General: Alert, Oriented x3, Cooperative HEENT: Atraumatic, PERRLA, EOMI, Normocephalic Oral:Upper airway wheezing. Short and wide neck Neck: Supple, No JVD, Negative Carotid Bruits Chest wall/Lungs: Air entry diminished in in all lung villarreal. Mild wheezing bilaterally Cardiovascular: Regular rate, Regular Rhythm, Normal S1, Normal S2, No M/G/R Abdomen: Bowel Sounds Present, Soft, Non Tender, Non-Distended : No dysuria. No renal angle tenderness. No suprapubic tenderness. Extremities: 2+ pitting edema, Capillary Refill Less than 3 Seconds Skin: Multiple small skin superficial scar tissue in upper thigh and groin area possible hidradenitis. No open ulcer. Musculoskeletal: ROM restricted Neurological: Left-sided facial droop,Chronic. Detailed neuro exam unobtainable patient is sleepy/drowsy Psych/Mental Status: Chronic schizophrenia, delusional disorder. Weight / BMI Weight Weight: 316 lb 5.813 oz Body Mass Index (BMI) 44.1 ABG / Lab / Microbiology Data 03/06/25 05:58 03/06/25 05:58 Laboratory: Laboratory Results - last 24 hr 03/05/25 12:15: POC Glucose 138 H 03/05/25 16:52: POC Glucose 136 H 03/05/25 21:15: POC Glucose 148 H 03/06/25 05:58: WBC 8.5, RBC 4.06 L, Hgb 10.5 L, Hct 34.4 L, MCV 84.7, MCH 25.9 L, MCHC 30.5 L, RDW Std Deviation 48.2 H, RDW Coeff of Jann 15.6 H, Plt Count 214, MPV 8.5, Immature Gran % (Auto) 1.100 H, Neut % (Auto) 73.1 H, Lymph % (Auto) 14.5 L, [place] % (Auto) 11.1 H, Eos % (Auto) 0.0, Baso % (Auto) 0.2, Absolute Neuts (auto) 6.2, Absolute Lymphs (auto) 1.23, Nucleated RBC % 0, Retic Count 2.09 H, Immature Retic Fraction 32.80 H, Retic Hgb Equivalent 25.5 L, Sodium 128 L, Potassium 5.8 H, Chloride 88 L, Carbon Dioxide 32.0, Anion Gap 8, BUN 33 H, Creatinine 1.13, Estim Creat Clear Calc 90.78, Est GFR (MDRD) Non-Af 71, BUN/Creatinine Ratio 29.0 H, Glucose 166 H, Calcium 8.6 03/06/25 06:08: POC Glucose 160 H Microbiology: Microbiology 03/03/25 23:34 Interface Orders Respiratory Panel (PCR) - Final Rhinovirus D/C Instructions DC O2, CPAP, BIPAP Needs Home O2 Discharge instructions: Yes Type of respiratory needs?: Oxygen Oxygen frequency: Continuous Continuous oxygen liters per minute: 3 DC home with Oxygen: Yes Home O2 MD Review: I have reviewed the oxygen testing, and the patient qualifies for home oxygen equipment and portability. The patient is mobile in the home and the community. Meaningful Use Info Meaningful Use Meaningful Use Diagnoses (Choose all that apply): None applicable Ischemic Stroke Statin Dosing Therapy Reference: STATIN DOSE THERAPY REFERENCE: * Patients > 75 years receive moderate or high dose statin therapy. * Patients 75 years or YOUNGER should receive HIGH intensity statin dose unless contraindicated. You will be required to document reason for non-treatment if statin daily dose does not meet guidelines. HIGH DOSE STATIN THERAPY DAILY Atorvastatin > than or = to 40 mg Rosuvastatin > than or = to 20 mg Amlodipine + Atorvastatin > than or = to 2.5/40 mg Ezetimibe + Simvastatin 10/80 mg Simvastatin 80mg Discharge Plan Admission Admit Date/Time: 03/03/25 22:15 Primary Reason for Your Visit: Acute heart failure exacerbation Attending Provider: Ricardo Cornell Primary Care Provider: Austen Schmitz Consulting Providers: Fidelina Uriostegui; Lauren Orr Discharge Orders/Prescriptions Prescriptions: New atorvastatin 40 mg Tablet 40 mg PO QHS Qty: 0 0RF sennosides-docusate sodium [Stimulant Laxative Plus] 8.6-50 mg Tablet 2 tab PO BID PRN PRN (Reason: Constipation) Qty: 0 0RF aspirin 81 mg Tablet,Delayed Release (Dr/Ec) 81 mg PO BREAKFAST Qty: 0 0RF metoprolol tartrate 25 mg Tablet 50 mg PO BID Qty: 0 0RF furosemide [Lasix] 40 mg tablet 40 mg PO BID Qty: 60 0RF Continued Erzofri 234 mg/1.5 mL syringe 234 mg IM Q28D ipratropium-albuterol 0.5 mg-3 mg(2.5 mg base)/3 mL solution for nebulization 3 ml inhalation Q8H Patient Comments: For three days (started 03/03/25) metformin 500 mg tablet 500 mg PO BID multivitamin [Daily Multi-Vitamin] Tablet 1 tab PO DAILY prednisone 20 mg tablet 40 mg PO DAILY Rx Instructions: stop 03/08/25 tamsulosin 0.4 mg capsule 0.4 mg PO Q24H cholecalciferol (vitamin D3) 25 mcg (1,000 unit) tablet,chewable 25 mcg PO DAILY cholecalciferol (vitamin D3) 125 mcg (5,000 unit) capsule 125 mcg PO MO olanzapine [Zyprexa] 10 mg tablet 10 mg PO DAILY divalproex 125 mg capsule, delayed rel sprinkle 500 mg PO DAILY divalproex [Depakote Sprinkles] 125 mg capsule, delayed rel sprinkle 750 mg PO QHS lorazepam 1 mg tablet 1 mg PO Q6H PRN (Reason: agitation) acetaminophen [Tylenol] 325 mg tablet 650 mg PO Q4H PRN (Reason: headache) albuterol sulfate [Ventolin HFA] 90 mcg/actuation HFA aerosol inhaler 2 inh inhalation Q4H PRN (Reason: COPD) Held lisinopril 20 mg tablet 20 mg PO DAILY Hold Instructions: Hold for SBP less than 120 mmHg. Might need decrease the lisinopril dose to 5 or 10 mg Discontinued aspirin 81 mg capsule 81 mg PO DAILY Referrals / Follow Up: Paresh Randhawa DO [Med Staff - Active Staff] - Within 1 Month Gil Munoz MD [Med Staff - Active Staff] - Within 1 Month Austen Schmitz MD [Primary Care Provider] - Disposition Disposition (needs filled in before D/C Order can be placed): [facility] Charges/Coding Visit Charges Inpatient E&M: 21982 Disch Hosp >30min
--- NOTE | 2025-03-06 11:50 | CASEMGMT ---
Patient will be returning to [facility] today. Plan: d/c back to [facility] under intermediate level of care. Physicians will transport patient via cot. Fidelina STEWARD
--- NOTE | 2025-03-06 11:58 | PHA.DC.MR.R ---
Pharmacy [place] Med Reconciliation Pharmacy Service has performed discharge medication reconciliation for this patient. The patient's discharge medication list was reviewed for discrepancies and discrepancies were resolved. Medications at Discharge Home Medications acetaminophen 325 mg tablet (Tylenol) 650 mg PO Q4H PRN headache 03/03/25 albuterol sulfate 90 mcg/actuation aerosol inhaler (Ventolin HFA) 2 inh inhalation Q4H PRN COPD 03/03/25 cholecalciferol (vitamin D3) 125 mcg (5,000 unit) capsule 125 mcg PO MO 03/03/25 cholecalciferol (vitamin D3) 25 mcg (1,000 unit) chewable tablet 25 mcg PO DAILY 03/03/25 divalproex 125 mg capsule,delayed release sprinkle 500 mg PO DAILY 03/03/25 divalproex 125 mg capsule,delayed release sprinkle (Depakote Sprinkles) 750 mg PO QHS 03/03/25 ipratropium 0.5 mg-albuterol 3 mg (2.5 mg base)/3 mL nebulization soln 3 ml inhalation Q8H Shortness of breath 03/03/25 lisinopril 20 mg tablet 20 mg PO DAILY 03/03/25 Held on 03/06/25. Instructions: Hold for SBP less than 120 mmHg. Might need decrease the lisinopril dose to 5 or 10 mg lorazepam 1 mg tablet 1 mg PO Q6H PRN agitation 03/03/25 metformin 500 mg tablet 500 mg PO BID 03/03/25 multivitamin (Daily Multi-Vitamin tablet) 1 tab PO DAILY 03/03/25 olanzapine 10 mg tablet (Zyprexa) 10 mg PO DAILY 03/03/25 paliperidone palmitate 234 mg/1.5 mL intramuscular syringe (Erzofri) 234 mg IM Q28D 03/03/25 prednisone 20 mg tablet 40 mg PO DAILY 03/03/25 tamsulosin 0.4 mg capsule 0.4 mg PO Q24H 03/03/25 aspirin 81 mg tablet,delayed release 81 mg PO BREAKFAST #0 tabs 03/06/25 atorvastatin 40 mg tablet 40 mg PO QHS #0 tabs 03/06/25 furosemide 40 mg tablet (Lasix) 40 mg PO BID #60 tabs 03/06/25 metoprolol tartrate 25 mg tablet 50 mg (2 x 25 mg) PO BID #0 tabs 03/06/25 sennosides 8.6 mg-docusate sodium 50 mg tablet (Stimulant Laxative Plus) 2 tab PO BID PRN PRN Constipation #0 tabs 03/06/25
--- NOTE | 2025-03-06 12:04 | NURSING ---
Report called to nurse Bustamante for pt to be d/c back to [facility].
--- NOTE | 2025-03-06 12:40 | CASEMGMT ---
Discharge Planning Discharge orders and signed med list faxed to [facility]. Physicians cot transport scheduled for 12:30p. Nursing, SW, and pt updated. VM left for pts legal guaridan (Ely Bhat). Catrachita Escobedo DC Planning Asst.
== END 2025-03-06 13:20 | disposition skilled nursing facility (03) | DRG 291 ==
LOC: ED 22:30 → PCU 22:35
PROVIDERS: Admitting Provider Family Medicine; Emergency Provider Emergency Medicine; PCP Family Medicine; Visit Provider Internal Medicine
DX: I11.0 Hypertensive heart disease with heart failure (principal); I50.23 Acute on chronic systolic (congestive) heart failure; F20.0 Paranoid schizophrenia; E87.1 Hypo-osmolality and hyponatremia; J44.1 Chronic obstructive pulmonary disease with (acute) exacerbation; Z68.41 Body mass index [BMI] 40.0-44.9, adult; J98.11 Atelectasis; N13.8 Other obstructive and reflux uropathy; F10.97 Alcohol use, unspecified with alcohol-induced persisting dementia; D63.8 Anemia in other chronic diseases classified elsewhere; E11.51 Type 2 diabetes mellitus with diabetic peripheral angiopathy without gangrene; F03.90 Unspecified dementia, unspecified severity, without behavioral disturbance, psychotic disturbance, mood disturbance, and anxiety; E66.01 Morbid (severe) obesity due to excess calories; F17.210 Nicotine dependence, cigarettes, uncomplicated; E78.5 Hyperlipidemia, unspecified; D50.9 Iron deficiency anemia, unspecified; L73.2 Hidradenitis suppurativa; Z79.82 Long term (current) use of aspirin; N40.1 Benign prostatic hyperplasia with lower urinary tract symptoms; Z79.899 Other long term (current) drug therapy; Z79.02 Long term (current) use of antithrombotics/antiplatelets; Z79.51 Long term (current) use of inhaled steroids; Z79.84 Long term (current) use of oral hypoglycemic drugs; Z79.52 Long term (current) use of systemic steroids; R29.810 Facial weakness; G47.00 Insomnia, unspecified; B34.8 Other viral infections of unspecified site
CPT/HCPCS: 36415; 71045; 71275; 80048; 80053; 80061; 80076; 80164; 81001; 82607; 82728; 82746; 82962; 83036; 83540; 83550; 83605; 83735; 83880; 84100; 84145; 84443; 84484; 85025; 85045; 85610; 85730; 87070; 87077; 87186; 87205; 87633; 92610; 93005; 93306; 94640; 97162; 97166; 97530; 97535; 99285; Q9967; A4216; J1940; J2916

== ENCOUNTER → 2025-03-03 | Outpatient (CLI) | payer MEDICARE, MEDICAID, SELFPAY ==
[2025-03-03 16:06] LABS: Absolute Lymphocyte Count 1.55 X10^3/uL (0.83-4.51); Absolute Neutrophil Count 6.4 X10^3/uL (2.0-7.7); Basophil# 0.01 X10^3/uL; Basophil% 0.1 % (0-1); Hematocrit 31.5 % (40-54); Hemoglobin 9.8 g/dL (13.0-16.5); Lymphocyte # 1.55 X10^3/ul (0.83-4.51); Lymphocyte % 15.3 % (19-41); Mean Corp Hgb Conc 31.1 g/dL (32-36); Mean Corpuscular Hgb 25.8 pg (27.0-32.0); Mean Corpuscular Volume 82.9 fL (80-94); Mean Platelet Vol. 8.8 fl (6.2-12.0); Monocyte# 2.05 X10^3/uL; Monocyte% 20.2 % (0-10); NRBC Flagged by Analyzer 0 % (0-5); Neutrophil # 6.44 X10^3/uL (2.7-7.7); Neutrophil % 63.6 % (47-70); POSITIVE DIFFERENTIAL YES; Platelet Count 204 K/mm3 (150-450); RBC Distribution Width CV 15.6 % (11.6-14.6); RBC Distribution Width SD 46.8 fl (35.1-43.9); White Blood Count 10.1 K/mm3 (4.4-11.0)
[2025-03-03 16:07] LABS: Differential Indicated SCAN CRITERIA MET
[2025-03-03 16:28] LABS: ALB/GLOB Ratio 0.9 RATIO (0.9-2.4); AST(SGOT) 13 U/L (<=37); Alanine Aminotransfer ALT/SGPT < 5 U/L (<=46); Albumin, Serum 3.4 g/dL (3.4-4.8); Alkaline Phosphatase 65 U/L (40-129); Anion Gap 8 (5-15); BUN 5 mg/dL (4-19); BUN/Creat Ratio 7.6 RATIO (10-20); Calcium,Total 8.2 mg/dL (7.6-11.0); Carbon Dioxide 29.4 mmol/L (21.0-32.0); Chloride 84 mmol/L (98-108); Creatinine, Serum 0.61 mg/dL (0.70-1.20); EST Glomerular Filtration Rate 105 (>60); Globulin 3.6 g/dL (2.2-4.2); Glucose 86 mg/dL (70-99); Platelet Estimate A (ADEQ); Potassium 4.9 mmol/L (3.3-5.1); Red Cell Morphology NORM C+C NORMAL (NORM C&C); Sodium Level 122 mmol/L (133-145); Total Bilirubin 0.22 mg/dL (0.00-1.30)
== END | disposition home or self-care (01) ==
LOC: LABSPEC 15:57
PROVIDERS: PCP Family Medicine; Referring Provider Family Medicine; Visit Provider Family Medicine
DX: R06.2 Wheezing (principal)
CPT/HCPCS: 80053; 85025